=== PATIENT | female | born 1995 | race Caucasian/White ===

== ENCOUNTER 2019-04-01 22:07 | Emergency (ER) | payer MEDICAID ==
[~2019-04-01] VITALS: Ht 177 cm; Wt 107.0 kg
[~2019-04-01 22:07] MED LIST: LAMO100T PO; MONT10TA24 PO; NORG1TAB19 PO; PANT40TA3 PO; VENL75CA93 PO
[2019-04-01] MEDS ORDERED: LACTATED RINGERS 1,000 ML IV ONE (22:34)
--- NOTE | 2019-04-01 22:44 | ED Abdominal Pain ---
General Chief Complaint: - Urinary Stated Complaint: VOMITING; ABD PAIN Nursing Triage Note: PT STATES SHE WAS DIAGNOSED 2 WEEKS AGO WITH A UTI, BUT DID NOT GET HER PRESCRIPTION FILLED FOR THE ANTIBIOTIC. PT PRESENTS WITH N/V, SHE STATES SHE IS 2 MONTHS Sepsis Screen: No Definite Risk Source of Information: Patient Exam Limitations: No Limitations History of Present Illness Date Seen by Provider: Apr 01, 2019 Time Seen by Provider: 22:20 Initial Comments The patient presents to ER by private conveyance with her mother and chief complaint about a week and a half ago she was diagnosed in [place], [place] with a UTI. She is 2 months. She did not pick up attendant the antibiotics that she did not have money but now she is home with her mom who can get the antibiotics but they don't have the prescription. She does not see a primary care doctor. She's not having any vaginal bleeding or discharge. She is however having some abdominal discomfort in her epigastric region especially before and immediately after vomiting. She's not having any discomfort presently. No fevers or chills that she is aware of. She had her gallbladder out no other abdominal surgeries. Allergies and Home Medications Allergies Coded Allergies: No Known Drug Allergies (Unverified , 04/06/15) Home Medications Lamotrigine 100 Mg Tablet, 100 MG PO BID, (Reported) Montelukast Sodium 10 Mg Tablet, 10 MG PO DAILY, (Reported) Norgestimate-Ethinyl Estradiol 1 Each Tablet, 1 TAB PO DAILY, (Reported) Pantoprazole Sodium 40 Mg Tablet.dr, 40 MG PO DAILY, (Reported) Venlafaxine HCl 75 Mg Cap.er.24h, 75 MG PO DAILY, (Reported) Patient Home Medication List Home Medication List Reviewed: Yes Review of Systems Review of Systems Constitutional: No chills, No diaphoresis, No fever; malaise EENTM: No Blurred Vision, No Double Vision Respiratory: Denies Cough, Denies Shortness of Air Cardiovascular: Denies Chest Pain, Denies Edema, Denies Irregular Heart Rate Gastrointestinal: See HPI, Abdominal Pain; Denies Constipated, Denies Diarrhea; Nausea, Poor Fluid Intake, Vomiting Genitourinary: See HPI, Burning; Denies Discharge Musculoskeletal: No back pain, No joint pain All Other Systems Reviewed Negative Unless Noted: Yes Past Qxxorma-Qdkuxy-Dbwsuk Hx Patient Social History Alcohol Use: Denies Use Recreational Drug Use: No Smoking Status: Never a Smoker Recent Foreign Travel: No Contact w/Someone Who Travel: No Recent Infectious Disease Expo: No Physical Abuse: No Sexual Abuse: No Mistreated: No Fear: No Seasonal Allergies Seasonal Allergies: No Past Medical History Surgeries: Yes Adenoidectomy, Gallbladder, Tonsillectomy Respiratory: No Cardiac: No Neurological: Yes Seizure Disorder Reproductive Disorders: No Gastrointestinal: No Musculoskeletal: No Endocrine: No Cancer: No Psychosocial: No Integumentary: No Blood Disorders: No Physical Exam Vital Signs Vital Signs - First Documented 04/01/19 22:23 Temp 36.3 Pulse 97 Resp 20 B/P (MAP) 117/69 (85) Pulse Ox 97 O2 Delivery Room Air Capillary Refill : Less Than 3 Seconds Height/Weight/BMI Height: 5'9" Weight: 277lbs. oz. 125.405859gq; 34.00 BMI Method:Stated General Appearance: WD/WN, no apparent distress HEENT: PERRL/EOMI, normal ENT inspection Neck: full range of motion, normal inspection Respiratory: lungs clear, normal breath sounds, no respiratory distress, no accessory muscle use Cardiovascular: normal peripheral pulses, regular rate, rhythm Gastrointestinal: normal bowel sounds (activated), non tender, soft, no organomegaly, other (negative for mesenteric signs, Rovsing sign, McBurney's point tenderness or rebound tenderness) Extremities: normal range of motion, non-tender, normal inspection, normal capillary refill Neurologic/Psychiatric: alert, normal mood/affect, oriented x 3 Skin: normal color, warm/dry Progress/Results/Core Measures Results/Orders Lab Results Laboratory Tests Test 04/01/19 22:08 04/01/19 22:45 Range/Units Urine Color YELLOW Urine Clarity CLOUDY Urine pH 6.5 5-9 Urine Specific [place] 1.025 H 1.016-1.022 Urine Protein NEGATIVE NEGATIVE Urine Glucose (UA) NEGATIVE NEGATIVE Urine Ketones 3+ H NEGATIVE Urine Nitrite NEGATIVE NEGATIVE Urine Bilirubin NEGATIVE NEGATIVE Urine Urobilinogen 0.2 < = 1.0 MG/DL Urine Leukocyte Esterase 3+ H NEGATIVE Urine RBC (Auto) NEGATIVE NEGATIVE Urine RBC NONE /HPF Urine WBC 25-50 H /HPF Urine Squamous Epithelial Cells 10-25 H /HPF Urine Crystals NONE /LPF Urine Bacteria FEW H /HPF Urine Casts NONE /LPF Urine Mucus MODERATE H /LPF Urine Culture Indicated YES White Blood Count 7.8 4.3-11.0 10^3/uL Red Blood Count 4.91 4.35-5.85 10^6/uL Hemoglobin 13.9 11.5-16.0 G/DL Hematocrit 40 35-52 % Mean Corpuscular Volume 81 80-99 FL Mean Corpuscular Hemoglobin 28 25-34 PG Mean Corpuscular Hemoglobin Concent 35 32-36 G/DL Red Cell Distribution Width 11.8 10.0-14.5 % Platelet Count 229 130-400 10^3/uL Mean Platelet Volume 10.1 7.4-10.4 FL Neutrophils (%) (Auto) 62 42-75 % Lymphocytes (%) (Auto) 29 12-44 % Monocytes (%) (Auto) 8 0-12 % Eosinophils (%) (Auto) 2 0-10 % Basophils (%) (Auto) 0 0-10 % Neutrophils # (Auto) 4.8 1.8-7.8 X 10^3 Lymphocytes # (Auto) 2.2 1.0-4.0 X 10^3 Monocytes # (Auto) 0.6 0.0-1.0 X 10^3 Eosinophils # (Auto) 0.1 0.0-0.3 10^3/uL Basophils # (Auto) 0.0 0.0-0.1 10^3/uL Sodium Level 140 135-145 MMOL/L Potassium Level 3.8 3.6-5.0 MMOL/L Chloride Level 101 98-107 MMOL/L Carbon Dioxide Level 24 21-32 MMOL/L Anion Gap 15 H 5-14 MMOL/L Blood Urea Nitrogen 5 L 7-18 MG/DL Creatinine 0.62 0.60-1.30 MG/DL Estimat Glomerular Filtration Rate > 60 BUN/Creatinine Ratio 8 Glucose Level 96 70-105 MG/DL Calcium Level 9.9 8.5-10.1 MG/DL My Orders Orders - LACHELLE FABIAN Ua Culture If Indicated (04/01/19 22:08) Urine Bedside (04/01/19 22:08) Cbc With Automated Diff (04/01/19 22:34) Basic Metabolic Panel (04/01/19 22:34) Ed Iv/Invasive Line Start (04/01/19 22:34) Lactated Ringers (Lr 1000 Ml Iv Solution (04/01/19 22:34) Promethazine Injection (Phenergan Injec (04/01/19 22:45) Ceftriaxone For Iv Use (Rocephin For I (04/01/19 22:45) Promethazine Tablet (Phenergan Tablet) (04/01/19 23:30) Urine Culture (04/01/19 22:08) Medications Given in ED Current Medications Medications Dose Ordered Sig/Rosalba Route Start Time Stop Time Status Last Admin Dose Admin Ceftriaxone Sodium 1000 mg/ Sterile Water 10 ml @ 200 mls/hr ONCE ONCE IV 04/01/19 22:45 04/01/19 22:47 DC 04/01/19 22:52 200 MLS/HR Lactated Ringer's 1,000 ml @ 0 mls/hr Q0M ONCE IV 04/01/19 22:34 04/01/19 22:35 DC 04/01/19 22:51 999 MLS/HR Promethazine HCl 25 mg ONCE ONCE IVP 04/01/19 22:45 04/01/19 22:46 DC 04/01/19 22:52 25 MG Promethazine HCl 25 mg ONCE ONCE PO 04/01/19 23:30 04/01/19 23:31 DC 04/01/19 23:32 25 MG Vital Signs/I&O 04/01/19 22:23 Temp 36.3 Pulse 97 Resp 20 B/P (MAP) 117/69 (85) Pulse Ox 97 O2 Delivery Room Air 04/02/19 00:00 Intake Total 1010 ml Balance 1010 ml Blood Pressure Mean: 85 POS Progress Progress Note : Time: 22:41 Progress Note We'll check a urine, rectocele test, CBC and BMP. Plan to give her a liter fluids as her heart rate is consistently in the 90s. Phenergan for her nausea. She's not having any pain presently. I suspect she may have a UTI and mild dehydration Departure Impression Primary Impression: Urinary tract infection Qualified Codes: N30.00 - Acute cystitis without hematuria Disposition: 01 HOME, SELF-CARE Condition: Stable Departure-Patient Inst. Decision time for Depature: 00:09 Referrals: NO,LOCAL PHYSICIAN (PCP/Family) Primary Care Physician Patient Instructions: Urinary Tract Infection, Adult (DC) Add. Discharge Instructions: Drink lots of fluids. Phenergan 1 tablet every 6 hours as needed for nausea. Start taking Keflex one capsule twice a day for the next 5 days. All discharge instructions reviewed with patient and/or family. Voiced understanding. Scripts Cephalexin (Keflex) 500 Mg Capsule 500 MG PO BID for 5 Days, #10 CAP 0 Refills Prov: LACHELLE FABIAN 04/02/19 LACHELLE FABIAN Apr 01, 2019 22:44 POS
[2019-04-01] MEDS ORDERED: PROMETHAZINE INJ 25 MG/ML (PHENERGAN) AMP IVP ONE (22:45)
[2019-04-01] MEDS ORDERED: cefTRIAXone FOR IV USE 1,000 MG in WATER (STERILE) FOR INJECTION 10 ML IV ONE (22:45)
[2019-04-01 22:53] LABS: BASOPHILS % (AUTO) 0 % (0-10); EOSINOPHILS % (AUTO) 2 % (0-10); HEMATOCRIT 40 % (35-52); HEMOGLOBIN 13.9 G/DL (11.5-16.0); LYMPHOCYTES # (AUTO) 2.2 X 10^3 (1.0-4.0); LYMPHOCYTES % (AUTO) 29 % (12-44); MEAN CORPUSCULAR HEMOGLOBIN 28 PG (25-34); MEAN CORPUSCULAR HGB CONC 35 G/DL (32-36); MEAN CORPUSCULAR VOLUME 81 FL (80-99); MEAN PLATELET VOLUME 10.1 FL (7.4-10.4); MONOCYTES % (AUTO) 8 % (0-12); NEUTROPHILS # (AUTO) 4.8 X 10^3 (1.8-7.8); NEUTROPHILS % (AUTO) 62 % (42-75); PLATELET COUNT 229 10^3/uL (130-400); RED CELL DISTRIBUTION WIDTH 11.8 % (10.0-14.5); WHITE BLOOD COUNT 7.8 10^3/uL (4.3-11.0)
[2019-04-01 22:54] LABS: EOSINOPHILS # (AUTO) 0.1 10^3/uL (0.0-0.3); MONOCYTES # (AUTO) 0.6 X 10^3 (0.0-1.0)
[2019-04-01 23:17] LABS: BUN/CREATININE RATIO 8; CALCIUM 9.9 MG/DL (8.5-10.1); CARBON DIOXIDE 24 MMOL/L (21-32); CHLORIDE 101 MMOL/L (98-107); CREATININE SERUM 0.62 MG/DL (0.60-1.30); GFR ESTIMATED > 60; GLUCOSE 96 MG/DL (70-105); POTASSIUM 3.8 MMOL/L (3.6-5.0); SODIUM 140 MMOL/L (135-145)
[2019-04-01] MEDS ORDERED: PROMETHAZINE 25 MG (PHENERGAN) TAB PO ONE (23:30)
[2019-04-01 23:37] LABS: BILIRUBIN,URINE NEGATIVE (NEGATIVE); CLARITY,URINE CLOUDY; COLOR,URINE YELLOW; GLUCOSE, URINE (UA) NEGATIVE (NEGATIVE); KETONES,URINE 3+ (NEGATIVE); LEUKOCYTE ESTERASE ,URINE 3+ (NEGATIVE); NITRITE,URINE NEGATIVE (NEGATIVE); PH,URINE 6.5 (5-9); PROTEIN,URINE NEGATIVE (NEGATIVE)
[2019-04-02 00:01] LABS: BACTERIA,URINE FEW /HPF; WBC,URINE 25-50 /HPF
[2019-04-02] MEDS ORDERED: CEPH-507 PO (00:11)
[2019-04-02] MEDS ORDERED: PROM25TA14 PO (00:15)
[2019-04-02 00:21] VITALS: BP 125/66
== END 2019-04-02 00:22 | disposition home or self-care (01) ==
LOC: EDUNIT# 22:07 → ER FS 22:09
DX: O23.41 Unspecified infection of urinary tract in pregnancy, first trimester (principal); O99.351 Diseases of the nervous system complicating pregnancy, first trimester; G40.909 Epilepsy, unspecified, not intractable, without status epilepticus; Z3A.00 Weeks of gestation of pregnancy not specified; Z90.89 Acquired absence of other organs
CPT/HCPCS: 36415; 80048; 81000; 84703; 85025; 87088; 96361; 96374; 96375

== ENCOUNTER 2019-09-08 17:09 | Emergency (ER) | payer MEDICAID ==
[~2019-09-08] VITALS: Ht 175 cm; Wt 117.1 kg
[~2019-09-08 17:09] MED LIST changes: +CEPH-507 PO; -LAMO100T PO; +LAMO100T5 PO; -MONT10TA24 PO; +MONT10TA26 PO; +PROM25TA14 PO
--- NOTE | 2019-09-08 18:11 | ED Neurological Problem ---
General Chief Complaint: Neurological Problems Stated Complaint: SEIZURE/OB Nursing Triage Note: Had a seizure approximately 1 hour ago. Is unsure how long the seizure lasted. She is currently , due in October, and is worried about the baby. Nursing Sepsis Screen: No Definite Risk Source: patient Exam Limitations: no limitations History of Present Illness Date Seen by Provider: September 08, 2019 Time Seen by Provider: 17:50 Initial Comments Patient presents to ER by private conveyance with chief complaint of approximate 1 hour prior to arrival she had a witnessed seizure lasting a few minutes. She had some postictal state and then was concern for her fetus his health and decided come to the ER to be checked out. She is known to Dr. Monique. She is a at 31 weeks 4 days with an estimated due date November 06, 2019. She has an appointment next week with both her neurologist to discuss her lamotrigine dosing and her loom repairer, Dr. Monique. She has been taking her medications routinely and has not had any recent illness cough fevers chills shortness breath nausea sweats seeing spots right upper quadrant abdominal pain dysuria, discharge or diarrhea. No sick contacts. Nursing reports heart tones 160. She felt movement/kicking just prior to arriving to the ER. Her last seizure before this was in May 2018 over a year ago. She denies a history of difficulty with , preeclamptic, hypertension, hyperglycemia. Allergies and Home Medications Allergies Coded Allergies: No Known Drug Allergies (Unverified , 04/06/15) Home Medications Cephalexin 500 Mg Capsule, 500 MG PO BID Prescribed by: LACHELLE FABIAN on 04/02/19 001 Lamotrigine 100 Mg Tablet, 100 MG PO BID, (Reported) Montelukast Sodium 10 Mg Tablet, 10 MG PO DAILY, (Reported) Norgestimate-Ethinyl Estradiol 1 Each Tablet, 1 TAB PO DAILY, (Reported) Pantoprazole Sodium 40 Mg Tablet.dr, 40 MG PO DAILY, (Reported) Promethazine HCl 25 Mg Tablet, 25 MG PO Q6H PRN for NAUSEA/VOMITING Prescribed by: LACHELLE FABIAN on 04/02/19 001 Venlafaxine HCl 75 Mg Cap.er.24h, 75 MG PO DAILY, (Reported) Patient Home Medication List Home Medication List Reviewed: Yes Review of Systems Review of Systems Constitutional: No chills, No diaphoresis Eyes: Denies Blindness, Denies Blurred Vision, Denies Photophobia, Denies Shadows Ears, Nose, Mouth, Throat: denies ear pain, denies ear discharge Respiratory: No cough, No short of breath Cardiovascular: No edema, No palpitations Gastrointestinal: No abdominal pain, No constipation, No diarrhea, No nausea, No vomiting Genitourinary: No decreased output, No discharge : No Musculoskeletal: No back pain, No joint pain Skin: No change in color, No pruritus, No rash Hematologic/Lymphatic: Denies Anemia, Denies Blood Clots, Denies Easy Bleeding, Denies Easy Bruising All Other Systems Reviewed Negative Unless Noted: Yes Past Sysmair-Ifebof-Gtrasj Hx Patient Social History Alcohol Use: Denies Use Recreational Drug Use: No Smoking Status: Never a Smoker 2nd Hand Smoke Exposure: No Recent Foreign Travel: No Contact w/Someone Who Travel: No Recent Infectious Disease Expo: No Physical Abuse: No Sexual Abuse: No Mistreated: No Fear: No Seasonal Allergies Seasonal Allergies: No Past Medical History Surgeries: Yes Adenoidectomy, Gallbladder, Tonsillectomy Respiratory: No Cardiac: No Neurological: Yes Seizure Disorder Reproductive Disorders: No Genitourinary: No Gastrointestinal: No Musculoskeletal: No Endocrine: No HEENT: No Cancer: No Psychosocial: No Integumentary: No Blood Disorders: No Physical Exam Vital Signs Vital Signs - First Documented 09/08/19 17:29 Temp 37.5 Pulse 95 Resp 16 B/P (MAP) 110/61 (77) Pulse Ox 96 Capillary Refill : Less Than 3 Seconds Height, Weight, BMI Height: 5'9" Weight: 277lbs. oz. 125.749212lq; 38.00 BMI Method:Stated General Appearance: WD/WN, no apparent distress HEENT: PERRL/EOMI, normal ENT inspection, pharynx normal Neck: full range of motion, normal inspection Respiratory: no respiratory distress, no accessory muscle use Cardiovascular: normal peripheral pulses, regular rate, rhythm, no edema Peripheral Pulses: 2+ Radial Pulses (R), 2+ Radial Pulses (L) Gastrointestinal: non tender, soft, other (gravid) Neurologic/Psychiatric: alert, normal mood/affect, oriented x 3 Crainal Nerves: normal hearing, normal speech, PERRL Skin: normal color, warm/dry Progress/Results/Core Measures Results/Orders Lab Results Laboratory Tests Test 09/08/19 18:09 09/08/19 18:22 Range/Units Urine Color YELLOW Urine Clarity SLT CLOUDY Urine pH 6.0 5-9 Urine Specific [place] >=1.030 1.016-1.022 Urine Protein TRACE H NEGATIVE Urine Glucose (UA) NEGATIVE NEGATIVE Urine Ketones TRACE H NEGATIVE Urine Nitrite NEGATIVE NEGATIVE Urine Bilirubin NEGATIVE NEGATIVE Urine Urobilinogen 0.2 < = 1.0 MG/DL Urine Leukocyte Esterase TRACE H NEGATIVE Urine RBC (Auto) NEGATIVE NEGATIVE Urine RBC NONE /HPF Urine WBC 5-10 H /HPF Urine Squamous Epithelial Cells 5-10 /HPF Urine Crystals NONE /LPF Urine Bacteria LARGE H /HPF Urine Casts NONE /LPF Urine Mucus SMALL H /LPF Urine Culture Indicated YES White Blood Count 9.4 4.3-11.0 10^3/uL Red Blood Count 4.55 4.35-5.85 10^6/uL Hemoglobin 13.0 11.5-16.0 G/DL Hematocrit 37 35-52 % Mean Corpuscular Volume 82 80-99 FL Mean Corpuscular Hemoglobin 29 25-34 PG Mean Corpuscular Hemoglobin Concent 35 32-36 G/DL Red Cell Distribution Width 12.1 10.0-14.5 % Platelet Count 271 130-400 10^3/uL Mean Platelet Volume 10.4 7.4-10.4 FL Neutrophils (%) (Auto) 75 42-75 % Lymphocytes (%) (Auto) 17 12-44 % Monocytes (%) (Auto) 7 0-12 % Eosinophils (%) (Auto) 1 0-10 % Basophils (%) (Auto) 0 0-10 % Neutrophils # (Auto) 7.0 1.8-7.8 X 10^3 Lymphocytes # (Auto) 1.6 1.0-4.0 X 10^3 Monocytes # (Auto) 0.6 0.0-1.0 X 10^3 Eosinophils # (Auto) 0.1 0.0-0.3 10^3/uL Basophils # (Auto) 0.0 0.0-0.1 10^3/uL Prothrombin Time 13.4 12.2-14.7 SEC INR Comment 1.0 0.8-1.4 Sodium Level 137 135-145 MMOL/L Potassium Level 4.2 3.6-5.0 MMOL/L Chloride Level 103 98-107 MMOL/L Carbon Dioxide Level 21 21-32 MMOL/L Anion Gap 13 5-14 MMOL/L Blood Urea Nitrogen 7 7-18 MG/DL Creatinine 0.56 L 0.60-1.30 MG/DL Estimat Glomerular Filtration Rate > 60 BUN/Creatinine Ratio 13 Glucose Level 96 70-105 MG/DL Calcium Level 9.2 8.5-10.1 MG/DL Corrected Calcium 9.6 8.5-10.1 MG/DL Total Bilirubin 0.4 0.1-1.0 MG/DL Aspartate Amino Transf (AST/SGOT) 18 5-34 U/L Alanine Aminotransferase (ALT/SGPT) 15 0-55 U/L Alkaline Phosphatase 142 H 40-136 U/L Total Protein 6.9 6.4-8.2 GM/DL Albumin 3.5 3.2-4.5 GM/DL My Orders Orders - LACHELLE FABIAN Cbc With Automated Diff (09/08/19 18:06) Comprehensive Metabolic Panel (09/08/19 18:06) Protime With Inr (09/08/19 18:06) Ua Culture If Indicated (09/08/19 18:06) Urine Culture (09/08/19 18:09) Vital Signs/I&O 09/08/19 17:29 Temp 37.5 Pulse 95 Resp 16 B/P (MAP) 110/61 (77) Pulse Ox 96 Blood Pressure Mean: 77 Progress Progress Note : Time: 18:10 Progress Note Well-appearing young lady who is with aseptic vital signs and a septic appearance and history of epilepsy presents after a seizure this been over a year. Likely related to the physiologic changes of however we will check a CMP PT/INR, CBC and UA looking for signs of infection and inflammation as well as help syndrome/preeclampsia. Fibrinogen is a send out here. We will then discuss the case with Dr. Monique. She has movement and good heart tones which are both reassuring. Consults : Consulting Physician: STACEY DALE DO Consults Notes Discussed the case with her primary lacquer polisher and he feels that if she is alert oriented and has good heart tones and movement that the dangerous past and she would be fine follow up next week. Departure Impression Primary Impression: Seizure Additional Impressions: Epilepsy Qualified Codes: G40.909 - Epilepsy, unspecified, not intractable, without status epilepticus Qualified Codes: Z3A.31 - 31 weeks gestation of Asymptomatic bacteriuria during in third trimester Disposition: 01 HOME, SELF-CARE Condition: Stable Departure-Patient Inst. Decision time for Depature: 19:20 Referrals: NO,LOCAL PHYSICIAN (PCP/Family) Primary Care Physician Patient Instructions: Epilepsy and , Seizures, Adult (DC) Add. Discharge Instructions: Continue taking your medications as prescribed. Follow-up next week to schedule appointment with Dr. Monique. All discharge instructions reviewed with patient and/or family. Voiced understanding. LACHELLE FABIAN September 08, 2019 18:11
[2019-09-08 18:25] LABS: CLARITY,URINE SLT CLOUDY; COLOR,URINE YELLOW; GLUCOSE, URINE (UA) NEGATIVE (NEGATIVE); KETONES,URINE TRACE (NEGATIVE); PROTEIN,URINE TRACE (NEGATIVE)
[2019-09-08 18:26] LABS: BACTERIA,URINE LARGE /HPF; BILIRUBIN,URINE NEGATIVE (NEGATIVE); LEUKOCYTE ESTERASE ,URINE TRACE (NEGATIVE); NITRITE,URINE NEGATIVE (NEGATIVE)
[2019-09-08 18:38] LABS: HEMATOCRIT 37 % (35-52); MEAN CORPUSCULAR HEMOGLOBIN 29 PG (25-34); MEAN CORPUSCULAR HGB CONC 35 G/DL (32-36); MEAN CORPUSCULAR VOLUME 82 FL (80-99); MEAN PLATELET VOLUME 10.4 FL (7.4-10.4); PLATELET COUNT 271 10^3/uL (130-400); RED CELL DISTRIBUTION WIDTH 12.1 % (10.0-14.5); WHITE BLOOD COUNT 9.4 10^3/uL (4.3-11.0)
[2019-09-08 18:39] LABS: BASOPHILS % (AUTO) 0 % (0-10); EOSINOPHILS # (AUTO) 0.1 10^3/uL (0.0-0.3); EOSINOPHILS % (AUTO) 1 % (0-10); LYMPHOCYTES # (AUTO) 1.6 X 10^3 (1.0-4.0); LYMPHOCYTES % (AUTO) 17 % (12-44); MONOCYTES # (AUTO) 0.6 X 10^3 (0.0-1.0); MONOCYTES % (AUTO) 7 % (0-12); NEUTROPHILS % (AUTO) 75 % (42-75)
[2019-09-08 18:47] LABS: PROTHROMBIN TIME PATIENT 13.4 SEC (12.2-14.7)
[2019-09-08 19:13] LABS: ALANINE AMINOTRANSFERASE 15 U/L (0-55); ALKALINE PHOSPHATASE 142 U/L (40-136); BILIRUBIN,TOTAL 0.4 MG/DL (0.1-1.0); BUN/CREATININE RATIO 13; CALCIUM 9.2 MG/DL (8.5-10.1); CARBON DIOXIDE 21 MMOL/L (21-32); CHLORIDE 103 MMOL/L (98-107); CREATININE SERUM 0.56 MG/DL (0.60-1.30); GFR ESTIMATED > 60; GLUCOSE 96 MG/DL (70-105); POTASSIUM 4.2 MMOL/L (3.6-5.0); SODIUM 137 MMOL/L (135-145); TOTAL PROTEIN 6.9 GM/DL (6.4-8.2)
[2019-09-08 19:14] LABS: ALBUMIN 3.5 GM/DL (3.2-4.5)
[2019-09-08 19:28] VITALS: BP 119/69
== END 2019-09-08 19:28 | disposition home or self-care (01) ==
LOC: EDUNIT# 17:09 → ER FS 17:10
DX: O99.353 Diseases of the nervous system complicating pregnancy, third trimester (principal); G40.909 Epilepsy, unspecified, not intractable, without status epilepticus; O26.893 Other specified pregnancy related conditions, third trimester; R82.71 Bacteriuria; Z3A.31 31 weeks gestation of pregnancy
CPT/HCPCS: 36415; 80053; 81000; 85025; 85610; 87088

== ENCOUNTER 2019-10-30 05:09 | Inpatient (IN) | payer MEDICAID ==
[~2019-10-30] VITALS: Ht 175.3 cm; Wt 122.6 kg
[2019-10-30] VITALS (85 sets, daily range): BP systolic 82–190; BP diastolic 45–79
--- NOTE | 2019-10-30 05:15 | NUR ---
WILIAN MONCADA presented to unit via ambulation from ED, accompanied by family, with c/o INDUCTION. WILIAN MONCADA weighed, gowned, voided, and to bed. EFHM and TOCO applied, VS taken. WILIAN MONCADA oriented to bed controls, call light, TV, heat, and A/C controls.
[2019-10-30] MEDS ORDERED: LAMO150T4 PO (05:26)
[2019-10-30] MEDS ORDERED: OXYTOCIN PRE-MIX DRIP 500 ML IV SCH ×2 (05:29→17:00)
[2019-10-30] MEDS ORDERED: MINERAL OIL CONCENTRATE 99.9% 15 ML UDC TOP PRN (05:30)
[2019-10-30 05:39] LABS: BILIRUBIN,URINE NEGATIVE (NEGATIVE); CLARITY,URINE SL CLOUDY; COLOR,URINE YELLOW; GLUCOSE, URINE (UA) NEGATIVE (NEGATIVE); KETONES,URINE NEGATIVE (NEGATIVE); LEUKOCYTE ESTERASE ,URINE 1+ (NEGATIVE); NITRITE,URINE NEGATIVE (NEGATIVE); PH,URINE 6.5 (5-9); PROTEIN,URINE NEGATIVE (NEGATIVE)
[2019-10-30] MEDS: D5 LR IV SOLUTION 1,000 ML IV SCH ×2 (05:56→13:32)
[2019-10-30 06:02] LABS: BACTERIA,URINE MODERATE /HPF
[2019-10-30 06:20] LABS: BASOPHILS % (AUTO) 0 % (0-10); EOSINOPHILS # (AUTO) 0.1 10^3/uL (0.0-0.3); EOSINOPHILS % (AUTO) 2 % (0-10); HEMATOCRIT 36 % (35-52); HEMOGLOBIN 12.6 G/DL (11.5-16.0); LYMPHOCYTES % (AUTO) 24 % (12-44); MEAN CORPUSCULAR HEMOGLOBIN 28 PG (25-34); MEAN CORPUSCULAR HGB CONC 35 G/DL (32-36); MEAN CORPUSCULAR VOLUME 80 FL (80-99); MEAN PLATELET VOLUME 10.6 FL (7.4-10.4); MONOCYTES # (AUTO) 0.8 X 10^3 (0.0-1.0); MONOCYTES % (AUTO) 10 % (0-12); NEUTROPHILS # (AUTO) 5.4 X 10^3 (1.8-7.8); NEUTROPHILS % (AUTO) 65 % (42-75); PLATELET COUNT 231 10^3/uL (130-400); RED CELL DISTRIBUTION WIDTH 13.1 % (10.0-14.5); WHITE BLOOD COUNT 8.3 10^3/uL (4.3-11.0)
[2019-10-30] MEDS ORDERED: LACTATED RINGERS 1,000 ML IV ONE ×3 (06:43→08:11)
[2019-10-30] MEDS ORDERED: fentaNYL 2 mcg/ml BUPIVA 0.125 100 ML ONE (07:20)
--- NOTE | 2019-10-30 07:21 | History & Physical-OB/GYN ---
History of Present Illness History of Present Illness Reason for visit/HPI Ms. Vaz, at 39 1/7 weeks, presents for Pitocin Induction of Labor. Date of Admission Oct 30, 2019 at 05:09 Date Seen by a Provider: Oct 30, 2019 Time Seen by a Provider: 06:50 I consulted on this patient on 10/30/19 07:15 Attending Physician Bob Yi DO Admitting Physician Bob Yi DO Consult Allergies and Home Medications Allergies Coded Allergies: cyclobenzaprine (Verified Allergy, Unknown, 10/30/19) Home Medications Lamotrigine 150 Mg Tablet, 150 MG PO BID, (Reported) Patient Home Medication List Home Medication List Reviewed: Yes Past Tkryyca-Donesc-Iyayjq Hx Patient Social History Marrital Status: single Number of Children: 0 Number of living children: 0 Alcohol Use: Denies Use Recreational Drug Use: No 2nd Hand Smoke Exposure: No Physical Abuse Screen: No Sexual Abuse: No Recent Foreign Travel: No Contact w/other who traveled: No Recent Hopitalizations: No Recent Infectious Disease Expo: No Seasonal Allergies Seasonal Allergies: Yes Surgeries Yes Adenoidectomy, Gallbladder, Tonsillectomy Respiratory No Cardiovascular No Neurological Yes Seizure Disorder Reproductive System Expected Date of Delivery: Nov 06, 2019 Hx Reproductive Disorders: No Genitourinary No Gastrointestinal No Musculoskeletal No Endocrine History of Endocrine Disorders: No HEENT History of HEENT Disorders: No Cancer No Psychosocial History of Psychiatric Problem: No Integumentary History of Skin or Integumenta: No Blood Transfusions History of Blood Disorders: No Family Medical History Family Hx: Patient reports no known family medical history. Review of Systems Constitutional: see HPI Physical Exam Physical Exam Vital Signs Vital Signs Date Time Temp Pulse Resp B/P (MAP) Pulse Ox O2 Delivery O2 Flow Rate FiO2 10/30/19 06:56 36.2 149 20 93 Room Air 10/30/19 05:28 36.2 149 20 102/71 (81) 93 Room Air Capillary Refill : Labs Laboratory Tests 10/30/19 05:25: Urine Color YELLOW, Urine Clarity SL CLOUDY, Urine pH 6.5, Urine Specific [place] 1.025H, Urine Protein NEGATIVE, Urine Glucose (UA) NEGATIVE, Urine Ketones NEGATIVE, Urine Nitrite NEGATIVE, Urine Bilirubin NEGATIVE, Urine Urobilinogen 0.2, Urine Leukocyte Esterase 1+H, Urine RBC (Auto) NEGATIVE, Urine RBC NONE, Urine WBC 5-10H, Urine Squamous Epithelial Cells 5-10, Urine Crystals NONE, Urine Bacteria MODERATEH, Urine Casts NONE, Urine Mucus NEGATIVE, Urine Culture Indicated YES 10/30/19 05:50: White Blood Count 8.3, Red Blood Count 4.44, Hemoglobin 12.6, Hematocrit 36, Mean Corpuscular Volume 80, Mean Corpuscular Hemoglobin 28, Mean Corpuscular Hemoglobin Concent 35, Red Cell Distribution Width 13.1, Platelet Count 231, Mean Platelet Volume 10.6H, Neutrophils (%) (Auto) 65, Lymphocytes (%) (Auto) 24, Monocytes (%) (Auto) 10, Eosinophils (%) (Auto) 2, Basophils (%) (Auto) 0, Neutrophils # (Auto) 5.4, Lymphocytes # (Auto) 2.0, Monocytes # (Auto) 0.8, Eosinophils # (Auto) 0.1, Basophils # (Auto) 0.0 General Appearance: No Apparent Distress, WD/WN Respiratory: Chest Non Tender, Lungs Clear, Normal Breath Sounds Cardiovascular: Regular Rate, Rhythm, No Murmur Abdominal: normal bowel sounds, non tender Labia: WNL Vagina: WNL Uterus: WNL, Enlarged (Gravid) Extremity: Normal Inspection, Non Tender, No Calf Tenderness Assessment/Plan Assessment and Plan Assessment: Intrauterine at 39 weeks Plan: Pitocin Induction of Labor. AROM. Epidural Anesthesia. I expect a normal spontaneous vaginal delivery Admission Diagnosis Admission Status: Inpatient Order (span 2 midnights) Reason for Inpatient Admission: with expectant delivery Clinical Quality Measures DVT/VTE Risk/Contraindication: Risk Factor Score Per Nursin RFS Level Per Nursing on Admit: 1=Low/No VTE PPBOB SCHRADER DO Oct 30, 2019 07:20
[2019-10-30] MEDS ORDERED: fentaNYL INJECTION 100 MCG/2 ML AMP ONE (07:41)
[2019-10-30] MEDS: EPIDURAL (fentaNYL 2 MCG/ML BUPIVA 0.125%)100 ML BAG EPI PRN ×2 (08:08→14:30)
[2019-10-30] MEDS ORDERED: ONDANSETRON 4 MG/2 ML (SDV) Z0FRAN IV PRN (08:15)
[2019-10-30] MEDS ORDERED: NALOXONE 0.4 MG/ML 1 ML (NARCAN) VIAL IV PRN (08:15)
[2019-10-30] MEDS ORDERED: BUPIVACAINE 0.25% 30 ML (SENSORCAINE) VIAL ONE (08:17)
[2019-10-30] MEDS ORDERED: LIDOCAINE 1% INJ 20 ML 20 ML VIAL ONE ×3 (15:57→16:28)
[2019-10-30] MEDS ORDERED: DIAZEPAM INJ 10 MG/2 ML (VALIUM) SYR ONE (16:33)
[2019-10-30] MEDS ORDERED: TETANUS,DIPTH,PERTUSS P/F (BOOSTRIX) 0.5 ML VIAL IM ONE (17:00)
[2019-10-30] MEDS ORDERED: WITCH HAZEL(TUCKS) 40 EA JAR TOP PRN (17:00)
[2019-10-30] MEDS ORDERED: BENZOCAINE/MENTHOL (DERMOPLAST) 60 ML CAN TP PRN (17:00)
[2019-10-30] MEDS ORDERED: DIBUCAINE (NUPERCAINAL) 1% OINT 30 GM TOP PRN (17:00)
[2019-10-30] MEDS ORDERED: MEASLES,MUMPS,RUBELLA 1 EA INJ SQ ONE (17:00)
--- NOTE | 2019-10-30 17:06 | OB Labor & Delivery Record ---
Vag Delivery Note Vag Delivery Note Date of Delivery: 10/30/19 Preoperative Diagnosis: Yolis Vaz is a (24 /Para / , Gestational Age (wks)39with [] Postoperative Diagnosis: Same Surgeon: STACEY DALE Cleaning Technician: [None] Anesthesia: [Epidural and Pudendal Block] Delivery Type: [Vaginal] Findings: [] Viable [Male] , apgars [], weight [] Lacerations: Midline Episiotomy Intact placenta with 3 vessel cord. No nuchal cord, body cord or shoulder dystocia Cytotec 800 mcg placed for hemorrhage prophylaxis Estimated Blood Loss: [300] ml Complications: None Condition: Stable Description of Procedure: The patient is a 24 year old female who presented [for Pitocin Induction of L abor]. She was admitted and informed consent was obtained. Her labor course was unremarkable. She progressed to complete dilatation and began to push. She was then set up for delivery. The 's head was delivered atraumatically in the [ROSSI] position. The shoulders and remainder of the 's body were then delivered without difficulty. Upon delivery, the head was held below the level of the perineum and the mouth and nares were bulb suctioned. The cord was doubly clamped and cut and the infant was handed off to the pediatric staff where NRP protocol was followed. An intact placenta with 3-vessel cord delivered via Kika and there was found to be minimal bleeding.~ Vigorous fundal massage was performed and the fundus was found to be firm. IV oxytocin was given. Examination of the vagina and perineum revealed only the midline episiotomy with no extension--repaired in the usual fashion with 2-0 and 3-0 vicryl suture. Following the repair, sponge, instrument and needle counts were correct. Mom and baby were both in stable condition in the labor suite. EBL 300 ml Vitals - Labs Vital Signs - I&O Vital Signs Date Time Temp Pulse Resp B/P (MAP) Pulse Ox O2 Delivery O2 Flow Rate FiO2 10/30/19 15:42 92 20 114/61 (78) Room Air 10/30/19 15:27 92 20 106/62 (77) Room Air 10/30/19 15:15 93 20 105/58 (74) Room Air 10/30/19 14:54 39.0 86 20 101/63 (76) Room Air 10/30/19 14:49 116 20 100/59 (73) Room Air 10/30/19 14:44 100 20 108/58 (75) Room Air 10/30/19 14:39 83 20 108/60 (76) Room Air 10/30/19 14:34 86 20 110/59 (76) Room Air 10/30/19 14:25 86 20 145/75 (98) Room Air 10/30/19 14:15 109 20 107/55 (72) Room Air 10/30/19 14:06 104 20 104/55 (71) Room Air 10/30/19 14:03 88 20 113/66 (82) Room Air 10/30/19 14:00 100 20 109/57 (74) Room Air 10/30/19 13:58 90 20 109/68 (82) Room Air 10/30/19 13:54 89 20 111/59 (76) Room Air 10/30/19 13:51 96 20 111/58 (75) Room Air 10/30/19 13:48 87 20 104/59 (74) Room Air 10/30/19 13:45 99 20 107/61 (76) Room Air 10/30/19 13:42 85 20 107/61 (76) Room Air 10/30/19 13:39 83 20 112/68 (83) Room Air 10/30/19 13:37 88 20 108/62 (77) Room Air 10/30/19 13:32 100 20 108/60 (76) Room Air 10/30/19 13:27 93 20 125/63 (83) Room Air 10/30/19 13:23 36.1 104 20 116/61 (79) Room Air 10/30/19 13:17 116 20 104/59 (74) Room Air 10/30/19 13:12 110 20 109/57 (74) Room Air 10/30/19 13:07 107 20 121/62 (81) Room Air 10/30/19 13:02 104 20 110/63 (79) Room Air 10/30/19 12:57 111 20 104/61 (75) Room Air 10/30/19 12:53 118 20 100/64 (76) Room Air 10/30/19 12:47 105 20 112/59 (76) Room Air 10/30/19 12:43 107 20 111/57 (75) Room Air 10/30/19 12:37 109 20 114/57 (76) Room Air 10/30/19 12:32 98 20 106/57 (73) Room Air 10/30/19 12:27 110 20 107/60 (76) Room Air 10/30/19 12:21 107 20 103/57 (72) Room Air 10/30/19 12:18 87 20 102/56 (71) Room Air 10/30/19 12:13 87 20 103/55 (71) Room Air 10/30/19 12:08 90 20 110/54 (72) Room Air 10/30/19 12:00 36.7 10/30/19 11:50 85 20 93/61 (72) Room Air 10/30/19 11:35 79 20 86/54 (65) Room Air 10/30/19 11:20 72 20 86/50 (62) Room Air 10/30/19 11:15 36.9 10/30/19 11:05 78 20 82/45 (57) Room Air 10/30/19 10:50 80 20 86/48 (61) Room Air 10/30/19 10:35 78 20 87/49 (62) Room Air 10/30/19 10:20 82 20 85/48 (60) Room Air 10/30/19 10:05 102 20 110/57 (74) 97 Room Air 10/30/19 09:50 87 20 102/50 (67) 96 Room Air 10/30/19 09:35 105 20 110/55 (73) 98 Room Air 10/30/19 09:20 94 20 108/56 (73) 97 Room Air 10/30/19 09:05 96 20 104/59 (74) 96 Room Air 10/30/19 08:50 36.8 88 20 106/56 (73) 97 Room Air 10/30/19 08:43 90 20 102/58 (73) 98 Room Air 10/30/19 08:37 103 20 106/58 (74) 97 Room Air 10/30/19 08:34 84 20 100/53 (69) 96 Room Air 10/30/19 08:31 90 20 100/66 (77) Room Air 10/30/19 08:28 99 20 104/58 (73) 96 Room Air 10/30/19 08:25 106 20 111/57 (75) 96 Room Air 10/30/19 08:22 94 20 106/59 (75) 96 Room Air 10/30/19 08:15 103 20 109/66 (80) 96 Room Air 10/30/19 08:12 107 20 107/59 (75) 96 Room Air 10/30/19 08:09 114 20 113/65 (81) 96 Room Air 10/30/19 08:06 100 20 120/70 (87) 96 Room Air 10/30/19 08:03 96 20 113/66 (82) 97 Room Air 10/30/19 08:00 117 20 132/79 (96) 97 Room Air 10/30/19 07:40 37.0 108 20 115/65 (82) 10/30/19 06:56 36.2 149 20 93 Room Air 10/30/19 05:28 36.2 149 20 102/71 (81) 93 Room Air Labs Laboratory Tests 10/30/19 05:25: Urine Color YELLOW, Urine Clarity SL CLOUDY, Urine pH 6.5, Urine Specific [place] 1.025H, Urine Protein NEGATIVE, Urine Glucose (UA) NEGATIVE, Urine Ketones NEGATIVE, Urine Nitrite NEGATIVE, Urine Bilirubin NEGATIVE, Urine Urobilinogen 0.2, Urine Leukocyte Esterase 1+H, Urine RBC (Auto) NEGATIVE, Urine RBC NONE, Urine WBC 5-10H, Urine Squamous Epithelial Cells 5-10, Urine Crystals NONE, Urine Bacteria MODERATEH, Urine Casts NONE, Urine Mucus NEGATIVE, Urine Culture Indicated YES 10/30/19 05:50: White Blood Count 8.3, Red Blood Count 4.44, Hemoglobin 12.6, Hematocrit 36, Mean Corpuscular Volume 80, Mean Corpuscular Hemoglobin 28, Mean Corpuscular Hemoglobin Concent 35, Red Cell Distribution Width 13.1, Platelet Count 231, Mean Platelet Volume 10.6H, Neutrophils (%) (Auto) 65, Lymphocytes (%) (Auto) 24, Monocytes (%) (Auto) 10, Eosinophils (%) (Auto) 2, Basophils (%) (Auto) 0, Neutrophils # (Auto) 5.4, Lymphocytes # (Auto) 2.0, Monocytes # (Auto) 0.8, Eosinophils # (Auto) 0.1, Basophils # (Auto) 0.0 STACEY DALE DO Oct 30, 2019 17:06
[2019-10-30] MEDS: IBUPROFEN 800 MG (MOTRIN) TAB PO SCH (18:33)
--- NOTE | 2019-10-30 19:00 | NUR ---
FFU/1, light rubra lochia noted, no clots expressed. Clean gown on. Fresh vpad and underwear on. Pt assisted to wheelchair. Pt and personal belongings taken to pp room 309 via wheelchair accompanied by rn, sister, and . Pt assisted to bed without incident. Pt and sister oriented to room and call light. packet explained. Pt and sister deny needs or concerns at this time
[2019-10-30] MEDS: CATHETER FLUSH 10 ML SYR IV SCH ×2 (19:44→19:45)
[2019-10-30] MEDS: DOCUSATE SODIUM 100 MG (COLACE) CAP PO SCH (20:38)
[2019-10-30] MEDS: ACETAMINOPHEN 500 MG TAB (TYLENOL) PO SCH (20:38)
[2019-10-30] MEDS ORDERED: CATHETER FLUSH 10 ML SYR IV SCH (22:00)
[2019-10-31] VITALS: BP 108/73
[2019-10-31] MEDS: IBUPROFEN 800 MG (MOTRIN) TAB PO SCH ×3 (02:25→17:31)
[2019-10-31 04:42] VITALS: BP 104/70
[2019-10-31] MEDS: ACETAMINOPHEN 500 MG TAB (TYLENOL) PO SCH ×3 (04:42→17:14)
[2019-10-31 05:09] LABS: BASOPHILS % (AUTO) 0 % (0-10); EOSINOPHILS # (AUTO) 0.1 10^3/uL (0.0-0.3); EOSINOPHILS % (AUTO) 1 % (0-10); HEMATOCRIT 32 % (35-52); HEMOGLOBIN 10.9 G/DL (11.5-16.0); LYMPHOCYTES # (AUTO) 2.4 X 10^3 (1.0-4.0); LYMPHOCYTES % (AUTO) 23 % (12-44); MEAN CORPUSCULAR HEMOGLOBIN 28 PG (25-34); MEAN CORPUSCULAR HGB CONC 34 G/DL (32-36); MEAN CORPUSCULAR VOLUME 81 FL (80-99); MEAN PLATELET VOLUME 10.6 FL (7.4-10.4); MONOCYTES % (AUTO) 9 % (0-12); NEUTROPHILS # (AUTO) 7.2 X 10^3 (1.8-7.8); NEUTROPHILS % (AUTO) 67 % (42-75); PLATELET COUNT 239 10^3/uL (130-400); RED CELL DISTRIBUTION WIDTH 13.3 % (10.0-14.5); WHITE BLOOD COUNT 10.7 10^3/uL (4.3-11.0)
[2019-10-31] MEDS ORDERED: IBUP-1780 PO (06:28)
[2019-10-31] MEDS ORDERED: ACET-93 PO (06:28)
[2019-10-31] MEDS ORDERED: DCS100C PO (06:28)
[2019-10-31] MEDS ORDERED: OXYC5TAB96 PO (06:28)
--- NOTE | 2019-10-31 06:34 | Discharge Summary ---
Diagnosis/Chief Complaint Date of Admission Oct 30, 2019 at 05:09 Date of Discharge October 31, 2019 Discharge Date: Oct 31, 2019 Discharge Time: 18:00 Admission Diagnosis Admission Diagnosis Intrauterine at 39 weeks Discharge Diagnosis Intrauterine at 39 weeks--delivered Reason Hospital Visit Ms. Vaz, at 39 1/7 weeks, presents for Pitocin Induction of Labor. Discharge Summary Hospital Course Was the Problem List Reviewed?: Yes Hospital Course Ms. Vaz, 39 weeks gestation, was admitted for Pitocin Induction of Labor. Once admitted and Pitocin started, I artificially ruptured her membranes. She received an epidural for antepartum pain management. She progressed to complete. She was given a Pudendal Block to assist with pain management just prior to delivery. She delivered a healthy viable male over a midline episiotomy with complications She was started on IV and oral pain management after delivery along with other care. The remainder of her hospitalization was unremarkable. Her vital signs remained stable throughout her hospitalization On day one, she will be discharge to home with instructions, prescriptions, and a follow up appointment. Labs Laboratory Tests 10/30/19 05:25: Urine Specific [place] 1.025H, Urine Leukocyte Esterase 1+H, Urine WBC 5-10H, Urine Bacteria MODERATEH 10/30/19 05:50: Mean Platelet Volume 10.6H 10/31/19 04:35: Mean Platelet Volume 10.6H, Red Blood Count 3.92L, Hemoglobin 10.9L, Hematocrit 32L Procedures None. Discharge Physical Examination Allergies: Coded Allergies: cyclobenzaprine (Verified Allergy, Unknown, 10/30/19) Vitals & I&Os Vital Signs Date Time Temp Pulse Resp B/P (MAP) Pulse Ox O2 Delivery O2 Flow Rate FiO2 10/31/19 04:42 36.8 78 18 104/70 (81) 97 Room Air General Appearance: Alert, Oriented X3, Cooperative HEENT: Atraumatic Respiratory: Clear to Auscultation, Normal Air Movement Cardiovascular: Regular Rate, No Murmurs Abdominal: Normal Bowel Sounds, Soft Extremities: No Clubbing, No Cyanosis Skin: No Rashes Neuro: Normal Gait, Normal Speech Psych/Mental Status: Mental Status NL Discharge Home Medications Reviewed and agree with Discharge Medication list on patient's Discharge Instruction sheet Instructions to Patient/Family Please see electronic discharge instructions given to patient. Clinical Quality Measures DVT/VTE Risk/Contraindication: Risk Factor Score Per Nursin RFS Level Per Nursing on Admit: 1=Low/No VTE PPSTACEY SCHRADER DO Oct 31, 2019 06:34
[2019-10-31] MEDS ORDERED: PRENATAL VITAMIN 1 EA TAB PO SCH (07:00)
[2019-10-31] MEDS: DOCUSATE SODIUM 100 MG (COLACE) CAP PO SCH (07:59)
[2019-10-31 08:00] VITALS: BP 109/62
--- NOTE | 2019-10-31 08:00 | NUR ---
A.M. ASSESSMENT COMPLETED. VSS. SET UP SHOWER. SISTER FEEDING WHEN ENTERED ROOM.
--- NOTE | 2019-10-31 08:20 | NUR ---
DR. DE LA TORRE IN TO SEE BABY.
--- NOTE | 2019-10-31 08:33 | Anesthesia-Regional Post-Op ---
Regional Patient Condition Mental Status: Alert, Oriented x3 Circulation: Same as Pre-Op Headache: Absent Sensation: Full Recovery Motor Block: Absent Post Op Complications Complications None Follow Up Care/Instructions Patient Instructions None needed. Anesthesia/Patient Condition Patient is doing well, no complaints, stable vital signs, no apparent adverse anesthesia problems. No complications reported per nursing. TIMOTHY KIMBALL CRNA Oct 31, 2019 08:32
--- NOTE | 2019-10-31 10:08 | NUR ---
MMR GIVEN SUBQ IN RIGHT UPPER ARM. SITE CLEAR.
--- NOTE | 2019-10-31 10:13 | NUR ---
TDAP GIVEN IM IN LEFT DELTOID. SITE CLEAR. CARING FOR IN ROOM. PT'S SISTER APPEARS TO DO MOST OF CARE.
--- NOTE | 2019-10-31 12:30 | NUR ---
RESTING AT INTERVALS. SISTER AT BEDSIDE. HAS BEEN IN TO ASSIST PT.
[2019-10-31 12:45] VITALS: BP 98/54
--- NOTE | 2019-10-31 13:30 | NUR ---
STORK MEAL TAKEN.
--- NOTE | 2019-10-31 14:30 | NUR ---
CONTINUES TO CARE FOR IN ROOM. PT'S SISTER HELPING.
[2019-10-31 16:30] VITALS: BP 113/63
--- NOTE | 2019-10-31 16:30 | NUR ---
CARING FOR IN ROOM. VSS. WAITING FOR INFANT'S LABS TO BE DONE TO SEE IF INFANT IS ABLE TO BE DISCHARGED THIS EVENING.
--- NOTE | 2019-10-31 16:45 | NUR ---
DISCHARGE INSTRUCTIONS REVIEWED WITH COPY TO PT. RXS GIVEN. STATES UNDERSTANDING OF ALL INSTRUCTIONS AND NEED TO F/U SCHEDULED AND NEEDED. PT'S SISTER ALSO ATTENTIVE TO INSTRUCTIONS. STATES UNDERSTANDING OF ROOMING-IN IF INFANT UNABLE TO BE DISCHARGED THIS EVENING.
--- NOTE | 2019-10-31 17:00 | NUR ---
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 SALINE LOCK HAS BEEN D/C'ED.
[2019-10-31 18:45] VITALS: BP 113/63
--- NOTE | 2019-10-31 18:45 | NUR ---
PT'S SISTER WILL GET RXS FOR PT R/T PT HAVING TO STAY A ROOMING-IN PARENT. DISMISSED FROM WS IN STABLE CONDITION. 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
== END 2019-10-31 18:45 | disposition home or self-care (01) | DRG 807 ==
LOC: LDRP 05:09
PROVIDERS: ADMIT Obstetrics & Gynecology; ATTEND Obstetrics & Gynecology
PROC: 10E0XZZ Delivery of Products of Conception, External Approach (ICD-10-PCS; principal; 2019-10-30)
PROC: 0W8NXZZ Division of Female Perineum, External Approach (ICD-10-PCS; 2019-10-30)
PROC: 10907ZC Drainage of Amniotic Fluid, Therapeutic from Products of Conception, Via Natural or Artificial Opening (ICD-10-PCS; 2019-10-30)
DX: O80 Encounter for full-term uncomplicated delivery (principal); Z37.0 Single live birth; Z3A.39 39 weeks gestation of pregnancy
CPT/HCPCS: 36415; 81000; 85025; 86850; 86900; 86901; 87088; 90707; 90715

== ENCOUNTER 2019-11-18 13:14 | Emergency (ER) | payer MEDICAID ==
[~2019-11-18] VITALS: Ht 175.3 cm; Wt 113.6 kg
[~2019-11-18 13:14] MED LIST changes: +ACET-93 PO; +DCS100C PO; +IBUP-1780 PO; +LAMO150T4 PO; +OXYC5TAB96 PO
--- OUTSIDE RECORDS SUMMARY | 2019-11-18 13:20 | XMS REPORT | Continuity of Care Document ---
Author Organization Unknown Address Unknown Phone Unavailable Allergies Active Description Code Type Severity Reaction Onset Reported/Identified Relationship to Patient Clinical Status Yes No Known Drug Allergies [id number] Drug Allergy Unknown N/A 04/06/2015 Yes cyclobenzaprine [id number] D rug Allergy Unknown N/A 10/30/2019 Medications There is no data. Problems Date Dx Coded Attending Type Code Diagnosis Diagnosed By 04/06/2015 JOCELINE SANTOS APRN Ot G40.909 EPILEPSY, UNSP, NOT INTRACTABLE, WITHOUT 04/06/2015 JOCELINE SANTOS APRN Ot S60.212A CONTUSION OF LEFT WRIST, INITIAL ENCOUNT 04/06/2015 JOCELINE SANTOS APRN Ot W19.XXXA UNSPECIFIED FALL, INITIAL ENCOUNTER 04/06/2015 JOCELINE SANTOS APRN Ot Y99 .8 OTHER EXTERNAL CAUSE STATUS 09/08/2019 LACHELLE FABIAN MD Ot G40.909 EPILEPSY, UNSP, NOT INTRACTABLE, WITHOUT 09/08/2019 LACHELLE FABIAN MD Ot O26.893 OTH RELATED CONDITIONS, THIRD 09/08/2019 LACHELLE FABIAN MD Ot O99.353 DISEASES OF THE NERVOUS SYS COMP PREGNAN 09/08/2019 LACHELLE FABIAN MD Ot R56. 9 UNSPECIFIED CONVULSIONS 09/08/2019 LACHELLE FABIAN MD Ot R82. 71 BACTERIURIA 09/08/2019 LACHELLE FABIAN MD Ot Z3A. 31 31 WEEKS GESTATION OF 09/12/2019 LACHELLE FABIAN MD Ot G40.909 EPILEPSY, UNSP, NOT INTRACTABLE, WITHOUT 09/12/2019 LACHELLE FABIAN MD Ot O26.893 OTH RELATED CONDITIONS, THIRD 09/12/2019 LACHELLE FABIAN MD Ot O99.353 DISEASES OF THE NERVOUS SYS COMP PREGNAN 09/12/2019 LACHELLE FABIAN MD Ot R56. 9 UNSPECIFIED CONVULSIONS 09/12/2019 LACHELLE FABIAN MD Ot R82. 71 BACTERIURIA 09/12/2019 LACHELLE FABIAN MD Ot Z3A. 31 31 WEEKS GESTATION OF 10/31/2019 SEALS STACEY BOWER E Ot O80 ENCOUNTER FOR FULL-TERM UNCOMPLICATED DE 10/31/2019 STACEY DALE DO E Ot Z37.0 SINGLE LIVE 10/31/2019 STACEY DALE DO Ot Z3A.3 9 39 WEEKS GESTATION OF Procedures Code Description Performed By Per formed On [id number] DI VISION OF FEMALE PERINEUM, EXTERNAL AP 10/30/[id number] HERNANDEZ OF [place], THERAP FROM POC 10/30/2019 [id number] DE LIVERY OF PRODUCTS OF CONCEPTION, EXTE 10/30/2019 Results Test Result Range Complete urinalysis with reflex to cultu re - 04/01/19 22:08 Urine color determination YELLOW NRG Urine clarity determination CLOUDY NR G Urine pH measurement by test strip 6.5 5-9 Specific gravity of urine by test strip 1.025 1.016-1.022 Urine protein assay by test strip, semi-quantitative NEGATIVE NEGATIVE Urine glucose detection by automated test strip NE GATIVE NEGATIVE Erythrocytes detection in urine sediment by light micr oscopy NEGATIVE NEGATIVE Urine ketones detection by automated test strip 3+ NEGATIVE Urine nitrite detection by test strip NEGATIVE NEGATIVE Urine total bilirubin detection by test strip NEGA TIVE NEGATIVE Urine urobilinogen measurement by automated test strip (mass/volume) 0.2 mg/dL < = 1.0 Urine leukocyte esterase detection by dipstick 3+ NEGATIVE Automated urine sediment erythrocyte cou nt by microscopy (number/high power field) NONE NRG Automated urine sediment leukocyte count by microscopy (number/high power field) [HPF] NRG Bacteria detection in urine sediment by light microsco py FEW NRG Squamous epithelial cells detection in u rine sediment by light microscopy 10-25 NRG Crystals detection in urine sediment by light microsco py NONE NRG Casts detection in urine sediment by light microscopy NONE NRG Mucus detection in urine sediment by light microscopy MODERATE NRG Complete urinalysis with reflex to culture YES NRG Complete blood count (CBC) with automate d white blood cell (WBC) differential - 04/01/19 22:45 Blood leukocytes automated count (number/volume) 7.8 10*3/uL 4.3-11.0 Blood erythrocytes automated count (number/volume) 4.91 10*6/uL 4.35-5.85 Venous blood hemoglobin measurement (mass/volume) 13.9 g/dL 11.5-16.0 Blood hematocrit (volume fraction) 40 % 35-52 Automated erythrocyte mean corpuscular volume 81 [ foz_us] 80-99 Automated erythrocyte mean corpuscular h emoglobin (mass per erythrocyte) 28 pg 25-34 Automated erythrocyte mean corpuscular h emoglobin concentration measurement (mass/volume) 35 g/dL 32-36 Automated erythrocyte distribution width ratio 11. 8 % 10.0- 14.5 Automated blood platelet count (count/volume) 229 10*3/uL 130-400 Automated blood platelet mean volume measurement 10.1 [foz_us] 7.4-10.4 Automated blood neutrophils/100 leukocytes 62 % 42-75 Automated blood lymphocytes/100 leukocytes 29 % 12-44 Blood monocytes/100 leukocytes 8 % 0-12 Automated blood eosinophils/100 leukocytes 2 % 0-10 Automated blood basophils/100 leukocytes 0 % 0-10 Blood neutrophils automated count (number/volume) 4.8 10*3 1.8-7.8 Blood lymphocytes automated count (number/volume) 2.2 10*3 1.0-4.0 Blood monocytes automated count (number/volume) 0. 6 10*3 0.0-1.0 Automated eosinophil count 0.1 10*3/uL 0 .0-0.3 Automated blood basophil count (count/volume) 0.0 10*3/uL 0.0-0.1 Whole blood basic metabolic panel - 03/11 07/26 22:45 Serum or plasma sodium measurement (moles/volume) 140 mmol/L 135-145 Serum or plasma potassium measurement (moles/volume) 3.8 mmol/L 3.6-5.0 Serum or plasma chloride measurement (moles/volume) 101 mmol/L 98-107 Carbon dioxide 24 mmol/L 21-32 Serum or plasma anion gap determination (moles/volume) 15 mmol/L 5-14 Serum or plasma urea nitrogen measurement (mass/volume ) 5 mg/dL 7-18 Serum or plasma creatinine measurement (mass/volume) 0.62 mg/dL 0.60-1.30 Serum or plasma urea nitrogen/creatinine mass ratio 8 NRG Serum or plasma creatinine measurement w ith calculation of estimated glomerular filtration rate > NRG Serum or plasma glucose measurement (mass/volume) 96 mg/dL 70-105 Serum or plasma calcium measurement (mass/volume) 9.9 mg/dL 8.5-10.1 Bacterial urine culture - 04/01/19 23:30 Bacterial urine culture NG NRG Complete urinalysis with reflex to cultu re - 09/08/19 18:09 Urine color determination YELLOW NRG Urine clarity determination SLT CLOUDY NRG Urine pH measurement by test strip 6.0 5-9 Specific gravity of urine by test strip >= 1.016-1.022 Urine protein assay by test strip, semi-quantitative TRACE NEGATIVE Urine glucose detection by automated test strip NE GATIVE NEGATIVE Erythrocytes detection in urine sediment by light micr oscopy NEGATIVE NEGATIVE Urine ketones detection by automated test strip TR WARREN NEGATIVE Urine nitrite detection by test strip NEGATIVE NEGATIVE Urine total bilirubin detection by test strip NEGA TIVE NEGATIVE Urine urobilinogen measurement by automated test strip (mass/volume) 0.2 mg/dL < = 1.0 Urine leukocyte esterase detection by dipstick TRA CE NEGATIVE Automated urine sediment erythrocyte cou nt by microscopy (number/high power field) NONE NRG Automated urine sediment leukocyte count by microscopy (number/high power field) [HPF] NRG Bacteria detection in urine sediment by light microsco py LARGE NRG Squamous epithelial cells detection in u rine sediment by light microscopy 5-10 NRG Crystals detection in urine sediment by light microsco py NONE NRG Casts detection in urine sediment by light microscopy NONE NRG Mucus detection in urine sediment by light microscopy SMALL NRG Complete urinalysis with reflex to culture YES NRG Bacterial urine culture - 09/08/19 18:09 Bacterial urine culture 3 OR MORE NRG COLONY COUNT >100,000/ML NRG SUSCEPTIBILITY GRAM POSITIVES, SUGGESTING PROBABLE NRG MRSA SCREEN COLLECTION CONTAMINATION WITH SKIN MERISSA RA NRG RAPID ID NO SUSCEPTIBILITY PERFORMED N RG Complete blood count (CBC) with automate d white blood cell (WBC) differential - 09/08/19 18:22 Blood leukocytes automated count (number/volume) 9.4 10*3/uL 4.3-11.0 Blood erythrocytes automated count (number/volume) 4.55 10*6/uL 4.35-5.85 Venous blood hemoglobin measurement (mass/volume) 13.0 g/dL 11.5-16.0 Blood hematocrit (volume fraction) 37 % 35-52 Automated erythrocyte mean corpuscular volume 82 [ foz_us] 80-99 Automated erythrocyte mean corpuscular h emoglobin (mass per erythrocyte) 29 pg 25-34 Automated erythrocyte mean corpuscular h emoglobin concentration measurement (mass/volume) 35 g/dL 32-36 Automated erythrocyte distribution width ratio 12. 1 % 10.0- 14.5 Automated blood platelet count (count/volume) 271 10*3/uL 130-400 Automated blood platelet mean volume measurement 10.4 [foz_us] 7.4-10.4 Automated blood neutrophils/100 leukocytes 75 % 42-75 Automated blood lymphocytes/100 leukocytes 17 % 12-44 Blood monocytes/100 leukocytes 7 % 0-12 Automated blood eosinophils/100 leukocytes 1 % 0-10 Automated blood basophils/100 leukocytes 0 % 0-10 Blood neutrophils automated count (number/volume) 7.0 10*3 1.8-7.8 Blood lymphocytes automated count (number/volume) 1.6 10*3 1.0-4.0 Blood monocytes automated count (number/volume) 0. 6 10*3 0.0-1.0 Automated eosinophil count 0.1 10*3/uL 0 .0-0.3 Automated blood basophil count (count/volume) 0.0 10*3/uL 0.0-0.1 PT panel in platelet poor plasma by coag ulation assay - 09/08/19 18:22 Prothrombin time (PT) in platelet poor plasma by coagu lation assay 13.4 s 12.2-14.7 INR in platelet poor plasma or blood by coagulation as say 1.0 0.8-1.4 Comprehensive metabolic panel - 09/08/19 18:22 Serum or plasma sodium measurement (moles/volume) 137 mmol/L 135-145 Serum or plasma potassium measurement (moles/volume) 4.2 mmol/L 3.6-5.0 Serum or plasma chloride measurement (moles/volume) 103 mmol/L 98-107 Carbon dioxide 21 mmol/L 21-32 Serum or plasma anion gap determination (moles/volume) 13 mmol/L 5-14 Serum or plasma urea nitrogen measurement (mass/volume ) 7 mg/dL 7-18 Serum or plasma creatinine measurement (mass/volume) 0.56 mg/dL 0.60-1.30 Serum or plasma urea nitrogen/creatinine mass ratio 13 NRG Serum or plasma creatinine measurement w ith calculation of estimated glomerular filtration rate > NRG Serum or plasma glucose measurement (mass/volume) 96 mg/dL 70-105 Serum or plasma calcium measurement (mass/volume) 9.2 mg/dL 8.5-10.1 Serum or plasma total bilirubin measurement (mass/volu me) 0.4 mg/dL 0.1-1.0 Serum or plasma alkaline phosphatase rogelio surement (enzymatic activity/volume) 142 U/L 40-136 Serum or plasma aspartate aminotransfera se measurement (enzymatic activity/volume) 18 U/L 5-34 Serum or plasma alanine aminotransferase measurement (enzymatic activity/volume) 15 U/L 0-55 Serum or plasma protein measurement (mass/volume) 6.9 g/dL 6.4-8.2 Serum or plasma albumin measurement (mass/volume) 3.5 g/dL 3.2-4.5 CALCIUM CORRECTED 9.6 mg/dL 8.5-10.1 Complete urinalysis with reflex to cultu re - 10/30/19 05:25 Urine color determination YELLOW NRG Urine clarity determination SL CLOUDY N RG Urine pH measurement by test strip 6.5 5-9 Specific gravity of urine by test strip 1.025 1.016-1.022 Urine protein assay by test strip, semi-quantitative NEGATIVE NEGATIVE Urine glucose detection by automated test strip NE GATIVE NEGATIVE Erythrocytes detection in urine sediment by light micr oscopy NEGATIVE NEGATIVE Urine ketones detection by automated test strip NE GATIVE NEGATIVE Urine nitrite detection by test strip NEGATIVE NEGATIVE Urine total bilirubin detection by test strip NEGA TIVE NEGATIVE Urine urobilinogen measurement by automated test strip (mass/volume) 0.2 mg/dL < = 1.0 Urine leukocyte esterase detection by dipstick 1+ NEGATIVE Automated urine sediment erythrocyte cou nt by microscopy (number/high power field) NONE NRG Automated urine sediment leukocyte count by microscopy (number/high power field) [HPF] NRG Bacteria detection in urine sediment by light microsco py MODERATE NRG Squamous epithelial cells detection in u rine sediment by light microscopy 5-10 NRG Crystals detection in urine sediment by light microsco py NONE NRG Casts detection in urine sediment by light microscopy NONE NRG Mucus detection in urine sediment by light microscopy NEGATIVE NRG Complete urinalysis with reflex to culture YES NRG Bacterial urine culture - 10/30/19 05:25 Bacterial urine culture 3 OR MORE NRG COLONY COUNT >100,000/ML NRG SUSCEPTIBILITY GRAM POSITIVES, SUGGESTING PROBABLE NRG MRSA SCREEN COLLECTION CONTAMINATION WITH SKIN MERISSA RA NRG RAPID ID NO SUSCEPTIBILITY PERFORMED N RG Complete blood count (CBC) with automate d white blood cell (WBC) differential - 10/30/19 05:50 Blood leukocytes automated count (number/volume) 8.3 10*3/uL 4.3-11.0 Blood erythrocytes automated count (number/volume) 4.44 10*6/uL 4.35-5.85 Venous blood hemoglobin measurement (mass/volume) 12.6 g/dL 11.5-16.0 Blood hematocrit (volume fraction) 36 % 35-52 Automated erythrocyte mean corpuscular volume 80 [ foz_us] 80-99 Automated erythrocyte mean corpuscular h emoglobin (mass per erythrocyte) 28 pg 25-34 Automated erythrocyte mean corpuscular h emoglobin concentration measurement (mass/volume) 35 g/dL 32-36 Automated erythrocyte distribution width ratio 13. 1 % 10.0- 14.5 Automated blood platelet count (count/volume) 231 10*3/uL 130-400 Automated blood platelet mean volume measurement 10.6 [foz_us] 7.4-10.4 Automated blood neutrophils/100 leukocytes 65 % 42-75 Automated blood lymphocytes/100 leukocytes 24 % 12-44 Blood monocytes/100 leukocytes 10 % 0-12 Automated blood eosinophils/100 leukocytes 2 % 0-10 Automated blood basophils/100 leukocytes 0 % 0-10 Blood neutrophils automated count (number/volume) 5.4 10*3 1.8-7.8 Blood lymphocytes automated count (number/volume) 2.0 10*3 1.0-4.0 Blood monocytes automated count (number/volume) 0. 8 10*3 0.0-1.0 Automated eosinophil count 0.1 10*3/uL 0 .0-0.3 Automated blood basophil count (count/volume) 0.0 10*3/uL 0.0-0.1 Blood type T Indirect antibody screen pa elmer - 10/30/19 05:50 WRISTBAND NUMBER [id number] NRG ABO+Rh group BP NRG Blood group antibody screen NEGATIVE NR G Complete blood count (CBC) with automate d white blood cell (WBC) differential - 10/31/19 04:35 Blood leukocytes automated count (number/volume) 10.7 10*3/uL 4.3-11.0 Blood erythrocytes automated count (number/volume) 3.92 10*6/uL 4.35-5.85 Venous blood hemoglobin measurement (mass/volume) 10.9 g/dL 11.5-16.0 Blood hematocrit (volume fraction) 32 % 35-52 Automated erythrocyte mean corpuscular volume 81 [ foz_us] 80-99 Automated erythrocyte mean corpuscular h emoglobin (mass per erythrocyte) 28 pg 25-34 Automated erythrocyte mean corpuscular h emoglobin concentration measurement (mass/volume) 34 g/dL 32-36 Automated erythrocyte distribution width ratio 13. 3 % 10.0- 14.5 Automated blood platelet count (count/volume) 239 10*3/uL 130-400 Automated blood platelet mean volume measurement 10.6 [foz_us] 7.4-10.4 Automated blood neutrophils/100 leukocytes 67 % 42-75 Automated blood lymphocytes/100 leukocytes 23 % 12-44 Blood monocytes/100 leukocytes 9 % 0-12 Automated blood eosinophils/100 leukocytes 1 % 0-10 Automated blood basophils/100 leukocytes 0 % 0-10 Blood neutrophils automated count (number/volume) 7.2 10*3 1.8-7.8 Blood lymphocytes automated count (number/volume) 2.4 10*3 1.0-4.0 Blood monocytes automated count (number/volume) 1. 0 10*3 0.0-1.0 Automated eosinophil count 0.1 10*3/uL 0 .0-0.3 Automated blood basophil count (count/volume) 0.0 10*3/uL 0.0-0.1 Encounters ACCT No. Visit Date/Time Discharge Status Pt. 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
[2019-11-18] MEDS ORDERED: LEVETIRACETAM INJECTION 1,000 MG in NS (IVPB) 100 ML IV STA (13:26)
[2019-11-18] MEDS ORDERED: NS IV 1000 ML 1,000 ML IV SCH (13:26)
[2019-11-18] MEDS ORDERED: ACETAMINOPHEN 325 MG TABLET PO ONE (13:30)
[2019-11-18 13:52] LABS: BASOPHILS % (AUTO) 0 % (0-10); EOSINOPHILS % (AUTO) 3 % (0-10); HEMATOCRIT 38 % (35-52); HEMOGLOBIN 12.6 G/DL (11.5-16.0); LYMPHOCYTES % (AUTO) 43 % (12-44); MEAN CORPUSCULAR HEMOGLOBIN 27 PG (25-34); MEAN CORPUSCULAR HGB CONC 33 G/DL (32-36); MEAN CORPUSCULAR VOLUME 82 FL (80-99); MEAN PLATELET VOLUME 10.2 FL (7.4-10.4); MONOCYTES % (AUTO) 7 % (0-12); NEUTROPHILS # (AUTO) 2.1 X 10^3 (1.8-7.8); NEUTROPHILS % (AUTO) 47 % (42-75); PLATELET COUNT 331 10^3/uL (130-400); RED CELL DISTRIBUTION WIDTH 12.1 % (10.0-14.5); WHITE BLOOD COUNT 4.5 10^3/uL (4.3-11.0)
[2019-11-18 13:53] LABS: EOSINOPHILS # (AUTO) 0.2 10^3/uL (0.0-0.3); LYMPHOCYTES # (AUTO) 1.9 X 10^3 (1.0-4.0); MONOCYTES # (AUTO) 0.3 X 10^3 (0.0-1.0)
[2019-11-18 14:16] LABS: ALANINE AMINOTRANSFERASE 16 U/L (0-55); ALBUMIN 3.8 GM/DL (3.2-4.5); ALKALINE PHOSPHATASE 122 U/L (40-136); BILIRUBIN,TOTAL 0.4 MG/DL (0.1-1.0); BUN/CREATININE RATIO 6; CALCIUM 9.1 MG/DL (8.5-10.1); CARBON DIOXIDE 24 MMOL/L (21-32); CHLORIDE 105 MMOL/L (98-107); GFR ESTIMATED > 60; GLUCOSE 110 MG/DL (70-105); POTASSIUM 3.5 MMOL/L (3.6-5.0); SODIUM 142 MMOL/L (135-145); TOTAL PROTEIN 6.5 GM/DL (6.4-8.2)
[2019-11-18] MEDS ORDERED: KCL 20 MEQ TAB (K-DUR) PO ONE (14:45)
[2019-11-18 15:13] LABS: BILIRUBIN,URINE NEGATIVE (NEGATIVE); CLARITY,URINE CLEAR; COLOR,URINE YELLOW; GLUCOSE, URINE (UA) NEGATIVE (NEGATIVE); KETONES,URINE NEGATIVE (NEGATIVE); LEUKOCYTE ESTERASE ,URINE 1+ (NEGATIVE); NITRITE,URINE NEGATIVE (NEGATIVE); PH,URINE 7.5 (5-9); PROTEIN,URINE NEGATIVE (NEGATIVE)
[2019-11-18 15:14] LABS: BACTERIA,URINE FEW /HPF; WBC,URINE 25-50 /HPF
[2019-11-18] MEDS ORDERED: DIAZEPAM 5 MG (VALIUM) TABLET PO ONE (15:45)
--- NOTE | 2019-11-18 15:45 | ED General ---
General Chief Complaint: Neurological Problems History of Present Illness Date Seen by Provider: Nov 18, 2019 Time Seen by Provider: 13:19 Initial Comments The patient is a 24-year-old female with a history of longstanding seizure disorder on Lamictal. She just gave to a healthy infant by vaginal delivery about 3 weeks ago. Her was not complicated by any preeclampsia. Yolis presents for evaluation of an apparent brief breakthrough seizure at home just prior to arrival. This was less than a minute in length. Patient states that her seizures are typically generalized however she states that she does have some recollection of this particular seizure. She started to feel prodromal symptoms and got down on the floor to avoid injury. She then had convulsions for less than a minute, followed by a period of mild postictal confusion which had largely cleared by the time EMS arrived to the emergency department with the patient. Vital signs were appropriate enroute and are appropriate here. Patient states she was feeling well earlier today before the onset of symptoms. She denies associated fevers, nausea or vomiting, headache, focal weakness, n umbness, tingling, neck stiffness/pain/meningismus, vision changes, shortness of breath or chest pain. She denies any abdominal pain, flank pain, back pain, dysuria or hematuria, changes in bowel habits. She denies any unusual vaginal bleeding or discharge. The patient is alert and pleasantly and appropriately interactive and oriented 4 and moves all extremities equally and is in absolutely no acute distress upon initial assessment here in the emergency department. Allergies and Home Medications Allergies Coded Allergies: cyclobenzaprine (Verified Allergy, Unknown, 10/30/19) Home Medications Acetaminophen 500 Mg Tablet, 1,000 MG PO Q6HR Prescribed by: STACEY DALE on 10/31/19627 Docusate Sodium 100 Mg Capsule, 100 MG PO BID Prescribed by: STACEY OCHOAS on 10/31/19627 Ibuprofen 800 Mg Tablet, 800 MG PO Q8H Prescribed by: STACEY DALE on 10/31/19627 Lamotrigine 150 Mg Tablet, 150 MG PO BID, (Reported) Oxycodone HCl 5 Mg Tablet, 5 MG PO Q6H PRN for PAIN-SEVERE (8-10) Prescribed by: STACEY DALE on 10/31/19627 Patient Home Medication List Home Medication List Reviewed: Yes Review of Systems Review of Systems Constitutional: see HPI All Other Systems Reviewed Negative Unless Noted: Yes (Negative excepted noted.) Past Dqonzij-Xakqbd-Qamkuz Hx Past Med/Social Hx: Reviewed Nursing Past Med/Soc Hx Patient Social History 2nd Hand Smoke Exposure: No Recent Hopitalizations: No Seasonal Allergies Seasonal Allergies: Yes Past Medical History Surgeries: Yes Adenoidectomy, Gallbladder, Tonsillectomy Respiratory: No Cardiac: No Neurological: Yes Seizure Disorder Reproductive Disorders: No Genitourinary: No Gastrointestinal: No Musculoskeletal: No Endocrine: No HEENT: No Cancer: No Psychosocial: No Integumentary: No Blood Disorders: No Family Medical History Reviewed Nursing Family Hx Patient reports no known family medical history. Physical Exam Vital Signs Capillary Refill : Height, Weight, BMI Height: 5'9" Weight: 277lbs. oz. 125.937090ho; 39.89 BMI Method:Stated General Appearance: No Apparent Distress Comments This is a young female appearing nontoxic and in no acute distress. Head is normocephalic and atraumatic; no hemotympanum bilaterally and absolutely no signs of trauma to head or scalp or face or neck. Neck is supple and nontender. Oropharynx is moist. Lungs are clear to auscultation at all stations. There is a normal S1 and S2 without rubs or gallops and capillary refill is appropriate, less than 2 seconds globally. Abdomen is soft, nontender nondistended. Skin is warm and dry without cyanosis, clubbing or edema. Psychiatrically, the patient demonstrates appropriate mood and affect and is alert. Neurologically, cranial nerves II through XII are intact and there are no lateralizing deficits noted. Speech is normal. Language is normal. Coordination is normal. There is no dysmetria with leyupo-ka-tptu or kvkk-ve-rrau bilaterally. Strength is 5 out of 5 in all joints of bilateral upper and lower extremities. Sensation is intact to light touch in bilateral upper and lower extremities. Visual ojeda are intact to confrontation and finger counting bilaterally. The patient and relates with a narrow, steady gait here in the emergency department and is alert and oriented 4. Progress/Results/Core Measures Suspected Sepsis SIRS Temperature: Pulse: Respiratory Rate: Laboratory Tests 11/18/19 13:35: White Blood Count 4.5 Blood Pressure / Mean: Laboratory Tests 11/18/19 13:35: Creatinine 1.00, Platelet Count 331, Total Bilirubin 0.4 Results/Orders Lab Results Laboratory Tests Test 11/18/19 13:35 11/18/19 15:00 Range/Units White Blood Count 4.5 4.3-11.0 10^3/uL Red Blood Count 4.68 4.35-5.85 10^6/uL Hemoglobin 12.6 11.5-16.0 G/DL Hematocrit 38 35-52 % Mean Corpuscular Volume 82 80-99 FL Mean Corpuscular Hemoglobin 27 25-34 PG Mean Corpuscular Hemoglobin Concent 33 32-36 G/DL Red Cell Distribution Width 12.1 10.0-14.5 % Platelet Count 331 130-400 10^3/uL Mean Platelet Volume 10.2 7.4-10.4 FL Neutrophils (%) (Auto) 47 42-75 % Lymphocytes (%) (Auto) 43 12-44 % Monocytes (%) (Auto) 7 0-12 % Eosinophils (%) (Auto) 3 0-10 % Basophils (%) (Auto) 0 0-10 % Neutrophils # (Auto) 2.1 1.8-7.8 X 10^3 Lymphocytes # (Auto) 1.9 1.0-4.0 X 10^3 Monocytes # (Auto) 0.3 0.0-1.0 X 10^3 Eosinophils # (Auto) 0.2 0.0-0.3 10^3/uL Basophils # (Auto) 0.0 0.0-0.1 10^3/uL Sodium Level 142 135-145 MMOL/L Potassium Level 3.5 L 3.6-5.0 MMOL/L Chloride Level 105 98-107 MMOL/L Carbon Dioxide Level 24 21-32 MMOL/L Anion Gap 13 5-14 MMOL/L Blood Urea Nitrogen 6 L 7-18 MG/DL Creatinine 1.00 0.60-1.30 MG/DL Estimat Glomerular Filtration Rate > 60 BUN/Creatinine Ratio 6 Glucose Level 110 H 70-105 MG/DL Calcium Level 9.1 8.5-10.1 MG/DL Corrected Calcium 9.3 8.5-10.1 MG/DL Total Bilirubin 0.4 0.1-1.0 MG/DL Aspartate Amino Transf (AST/SGOT) 18 5-34 U/L Alanine Aminotransferase (ALT/SGPT) 16 0-55 U/L Alkaline Phosphatase 122 40-136 U/L Total Protein 6.5 6.4-8.2 GM/DL Albumin 3.8 3.2-4.5 GM/DL Human Chorionic Gonadotropin, Quant < 5 <5 MIU/ML Urine Color YELLOW Urine Clarity CLEAR Urine pH 7.5 5-9 Urine Specific [place] 1.015 L 1.016-1.022 Urine Protein NEGATIVE NEGATIVE Urine Glucose (UA) NEGATIVE NEGATIVE Urine Ketones NEGATIVE NEGATIVE Urine Nitrite NEGATIVE NEGATIVE Urine Bilirubin NEGATIVE NEGATIVE Urine Urobilinogen 0.2 < = 1.0 MG/DL Urine Leukocyte Esterase 1+ H NEGATIVE Urine RBC (Auto) 2+ H NEGATIVE Urine RBC 5-10 H /HPF Urine WBC 25-50 H /HPF Urine Squamous Epithelial Cells 5-10 /HPF Urine Crystals NONE /LPF Urine Bacteria FEW H /HPF Urine Casts NONE /LPF Urine Mucus NEGATIVE /LPF Urine Culture Indicated YES My Orders Orders - MIRA REYNOLDS MD Cbc With Automated Diff (11/18/19 13:26) Comprehensive Metabolic Panel (11/18/19 13:26) Uric Acid (11/18/19 13:26) LDH (11/18/19 13:26) Ua Culture If Indicated (11/18/19 13:26) Hcg,Quantitative (11/18/19 13:26) Ed Iv/Invasive Line Start (11/18/19 13:26) Ns Iv 1000 Ml (Sodium Chloride 0.9%) (11/18/19 13:26) Levetiracetam Injection (Keppra Injectio (11/18/19 13:26) Acetaminophen Tablet/Caplet (Tylenol T (11/18/19 13:30) Potassium Chloride (Tablet) (K Dur Table (11/18/19 14:45) Urine Culture (11/18/19 15:00) Diazepam Tablet (Valium Tablet) (11/18/19 15:45) Medications Given in ED Current Medications Medications Dose Ordered Sig/Rosalba Route Start Time Stop Time Status Last Admin Dose Admin Acetaminophen 975 mg ONCE ONCE PO 11/18/19 13:30 11/18/19 13:31 DC 11/18/19 14:19 975 MG Vital Signs/I&O Capillary Refill : Progress Note : Time: 14:00 Progress Note Vital signs and clinical examination are reassuring and neurologic examination is nonfocal. 24-year-old female with long-standing history of seizure disorder on lamotrigine who presents for evaluation of a brief breakthrough seizure prior to arrival. As the patient is 3 weeks , we'll check labs as noted although very low suspicion for preeclampsia given completely appropriate blood pressure here. We will load with a dose of IV Keppra to prevent recurrent seizure. If workup is reassuring, anticipate discharge home with instructions to follow-up very closely with her neurologist within the next few days. Patient understands and agrees with this plan of care. 1515: Patient is resting comfortably in no acute distress upon reassessment. Workup as above is unremarkable for any evidence of acute process, aside from some evidence of possible urinary tract infection which we will treat with Macrobid. There is no proteinuria and LFTs are normal and the patient's blood pressure remains normal. No evidence of preeclampsia; case is discussed with Dr. Maravilla of [facility] who is in agreement that no further workup is needed for preeclampsia or other acute process at this time. We'll proceed with discharge. Patient is advised to follow-up with her neurologist in the next 2-4 days in the office for a reevaluation of her antiseizure therapy. I did try to contact her neurologist but he does not have an director of pulmonary unit modality by which he can be reached off-hours as far as I can tell. Patient understands that if she feels worse is that of better, has recurrent symptoms or any other new symptoms of concern that she should return right away for reevaluation. All questions are answered. Departure Impression Primary Impression: Other seizures Additional Impression: Acute cystitis without hematuria Disposition: 01 HOME, SELF-CARE Condition: Improved Departure-Patient Inst. Referrals: STACEY DALE DO (PCP) Primary Care Physician RUBIA MICHAEL MD (Family) Primary Care Physician Patient Instructions: Seizures Add. Discharge Instructions: Follow-up very closely with Dr. Michael, ideally within the next 2-4 days, for a reevaluation of your antiseizure medication regimen and further care. I also recommended that you follow up with your primary doctor within the next 2-4 days as well. Take the antibiotic as prescribed for treatment of urinary tract infection, until the prescription is gone. Return to the emergency room right away with recurrent or worsening symptoms or with any other new symptoms of concern. Scripts Nitrofurantoin Monohyd/M-Cryst (Macrobid 100 mg Capsule) 100 Mg Capsule 1 TAB PO BID for 5 Days, #10 CAP Prov: MIRA REYNOLDS MD 11/18/19 MIRA REYNOLDS MD Nov 18, 2019 15:45
[2019-11-18] MEDS ORDERED: NITR-65 PO (15:55)
[2019-11-18 16:15] VITALS: BP 115/72
[2019-11-18 22:55] LABS: URIC ACID 3.7 MG/DL (2.6-7.2)
[2019-11-19] MEDS ORDERED: LEVE500T99 PO (15:51)
== END 2019-11-18 16:15 | disposition home or self-care (01) ==
LOC: EDUNIT# 13:14 → ER FS 13:15
DX: G40.909 Epilepsy, unspecified, not intractable, without status epilepticus (principal); N30.90 Cystitis, unspecified without hematuria; Z88.8 Allergy status to other drugs, medicaments and biological substances
CPT/HCPCS: 36415; 80053; 81000; 83615; 84550; 84702; 85025; 87088

== ENCOUNTER 2019-11-19 14:04 | Emergency (ER) | payer MEDICAID ==
[~2019-11-19] VITALS: Ht 175.3 cm; Wt 113.6 kg
[~2019-11-19 14:04] MED LIST changes: +NITR-65 PO
[2019-11-19] MEDS ORDERED: LORazepam INJ 2 MG/ML (ATIVAN) VIAL IVP ONE (14:30)
--- NOTE | 2019-11-19 14:58 | ED Neurological Problem ---
General Chief Complaint: Neurological Problems Stated Complaint: SEIZURE Nursing Triage Note: Patient reports she felt well yesterday after being discharged from the ED, states she has not yet filled or taken her macrobid prescription for her UTI. She states she has been taking her lamictal as prescribed to her by her neurologist. Patient states she was with her mother when she had a seizure today. Nursing Sepsis Screen: No Definite Risk History of Present Illness Date Seen by Provider: Nov 19, 2019 Time Seen by Provider: 14:55 Initial Comments Pt brought by EMS from home for seizure. She was seen in the ED yesterday for seizure. She takes Lamictal for seizure disorder and her Neurologist is Dr. Michael. She was given 1000mg of Keppra last night. She had a seizure reportedly witnessed by her mother today at home and EMS notes she seemed post-ictal afterwards. She had labs done last night that were unremarkable, she was given Macrobid for a UTI which she has not gotten filled yet. Allergies and Home Medications Allergies Coded Allergies: cyclobenzaprine (Verified Allergy, Unknown, 10/30/19) Home Medications Acetaminophen 500 Mg Tablet, 1,000 MG PO Q6HR Prescribed by: STACEY DALE on 10/31/19627 Docusate Sodium 100 Mg Capsule, 100 MG PO BID Prescribed by: STACEY DALE on 10/31/19627 Ibuprofen 800 Mg Tablet, 800 MG PO Q8H Prescribed by: STACEY DALE on 10/31/19627 Lamotrigine 150 Mg Tablet, 150 MG PO BID, (Reported) Nitrofurantoin Monohyd/M-Cryst 100 Mg Capsule, 1 TAB PO BID Prescribed by: MIRA REYNOLDS on 11/18/19 0365 Oxycodone HCl 5 Mg Tablet, 5 MG PO Q6H PRN for PAIN-SEVERE (8-10) Prescribed by: STACEY DALE on 10/31/19627 Patient Home Medication List Home Medication List Reviewed: Yes Review of Systems Review of Systems Constitutional: no symptoms reported Eyes: No Symptoms Reported Ears, Nose, Mouth, Throat: no symptoms reported Respiratory: no symptoms reported Cardiovascular: no symptoms reported Gastrointestinal: no symptoms reported Skin: no symptoms reported Psychiatric/Neurological: Tonic Clonic Seizures Hematologic/Lymphatic: No Symptoms Reported Past Coohohw-Omdgjh-Idmxvq Hx Patient Social History Alcohol Use: Denies Use Recreational Drug Use: No Smoking Status: Never a Smoker 2nd Hand Smoke Exposure: No Recent Foreign Travel: No Contact w/Someone Who Travel: No Recent Infectious Disease Expo: No Recent Hopitalizations: No Physical Abuse: No Sexual Abuse: No Mistreated: No Fear: No Seasonal Allergies Seasonal Allergies: Yes Past Medical History Surgeries: Yes Adenoidectomy, Gallbladder, Tonsillectomy Respiratory: No Cardiac: No Neurological: Yes Seizure Disorder Reproductive Disorders: No Genitourinary: No Gastrointestinal: No Musculoskeletal: No Endocrine: No HEENT: No Cancer: No Psychosocial: No Integumentary: No Blood Disorders: No Family Medical History Patient reports no known family medical history. Physical Exam Vital Signs Vital Signs - First Documented 11/19/19 14:13 Temp 36.8 Pulse 88 Resp 22 B/P (MAP) 122/59 (80) Pulse Ox 98 O2 Delivery Room Air Capillary Refill : Less Than 3 Seconds Height, Weight, BMI Height: 5'9" Weight: 277lbs. oz. 125.906298gz; 36.00 BMI Method:Stated General Appearance: WD/WN, no apparent distress HEENT: PERRL/EOMI Neck: supple Respiratory: lungs clear, normal breath sounds, no respiratory distress Cardiovascular: regular rate, rhythm, no edema Gastrointestinal: non tender, soft Extremities: non-tender Neurologic/Psychiatric: no motor/sensory deficits, normal mood/affect, oriented x 3, other (Slow to answer questions but does answer appropriately) Motor/Sensory: no motor deficit, no sensory deficit Skin: normal color, warm/dry Progress/Results/Core Measures Results/Orders My Orders Orders - KERLINE DONG MD Lorazepam Injection (Ativan Injection) (11/19/19 14:30) Medications Given in ED Current Medications Medications Dose Ordered Sig/Rosalba Route Start Time Stop Time Status Last Admin Dose Admin Lorazepam 1 mg ONCE ONCE IVP 11/19/19 14:30 11/19/19 14:31 DC 11/19/19 14:36 1 MG Vital Signs/I&O 11/19/19 14:13 Temp 36.8 Pulse 88 Resp 22 B/P (MAP) 122/59 (80) Pulse Ox 98 O2 Delivery Room Air Blood Pressure Mean: 80 Progress Progress Note : Time: 15:48 Progress Note More alert now, did seem post-ictal on arrival. She is currently on Lamictal. Was given Keppra last night in the ED. I will prescribe Keppra for her to start, advised to call her Neurologist Dr. Michael tomorrow for follow up. Departure Impression Primary Impression: Seizure Disposition: HOME, SELF-CARE Condition: Improved Departure-Patient Inst. Decision time for Depature: 15:50 Referrals: STACEY DALE DO (PCP) Primary Care Physician RUBIA MICHAEL MD (Family) Primary Care Physician Patient Instructions: Seizures, Adult (DC) Add. Discharge Instructions: All discharge instructions reviewed with patient and/or family. Voiced understanding. Scripts Levetiracetam (Keppra) 500 Mg Tablet 500 MG PO BID, #60 TAB Prov: KERLINE DONG MD 11/19/19 KERLINE DONG MD Nov 19, 2019 14:58
[2019-11-19] MEDS ORDERED: LEVE500T99 PO (15:51)
[2019-11-19 16:44] VITALS: BP 124/78
== END 2019-11-19 16:44 | disposition home or self-care (01) ==
LOC: EDUNIT# 14:04 → ER FS 14:05
DX: G40.909 Epilepsy, unspecified, not intractable, without status epilepticus (principal); Z88.8 Allergy status to other drugs, medicaments and biological substances

== ENCOUNTER 2021-01-13 14:03 | Emergency (ER) | payer MEDICAID ==
[~2021-01-13] VITALS: Ht 175.2 cm; Wt 118.6 kg
[~2021-01-13 14:03] MED LIST changes: +LEVE500T99 PO; -MONT10TA26 PO; +MONT10TA32 PO; +OXC5T PO; -OXYC5TAB96 PO; -PANT40TA3 PO; +PANT40TA52 PO
--- NOTE | 2021-01-13 15:39 | ED Syncope ---
General Chief Complaint: Dizziness/Syncope Stated Complaint: DIZZINESS; N/V Source of Information: Patient Exam Limitations: No Limitations (MEGA [employer]IN STUDENT) History of Present Illness Date Seen by Provider: Jan 13, 2021 Initial Comments 25 yo F presents with a cc of dizziness. Pt stated that the dizziness started this morning, it lasts for a few minutes and will subside when she sits down. Pt is not currently having dizziness at this time. Was unable to attend work today. Last time she felt like this, she was . Pt reports nausea and headaches. Current smoker, 1/2 pack per day, last five years. Timing/Prior Episodes: No Prior History Symptoms Prior to Episode: Lightheadedness Precipitating Factors: None Loss of Consciousness: No Loss of Consciousness Current Symptoms: Back to Normal, Nausea (MEGA SPAIN STUDENT) Time Seen by Provider: 16:10 Initial Comments This 25-year-old young lady reports an episode of nausea, dizziness, and shaking while she was getting ready for work at home today. She is uncertain of her status and reports she has felt this way when in the past. She reports prior history of hypoglycemia as well. This is not a common occurre nce for her. 2 weeks ago she was diagnosed with a urinary tract infection and treated. She reports some recurrent nausea since then. Patient was walking at the time of the incident. She denies chest pain or SOA. (KATHYA ABARCA MD) Allergies and Home Medications Allergies Coded Allergies: cyclobenzaprine (Verified Allergy, Unknown, 10/30/19) Patient Home Medication List Home Medication List Reviewed: Yes (KATHYA ABARCA MD) Acetaminophen (Acetaminophen) 500 Mg Tablet, 1,000 MG PO Q6HR Prescribed by: STACEY DALE on 10/31/19627 Docusate Sodium (Dok) 100 Mg Capsule, 100 MG PO BID Prescribed by: STACEY DALE on 10/31/19627 Ibuprofen (Ibuprofen) 800 Mg Tablet, 800 MG PO Q8H Prescribed by: STACEY DALE on 10/31/19627 Lamotrigine (Lamotrigine) 150 Mg Tablet, 150 MG PO BID, (Reported) Entered as Reported by: CHELSEA DEL VALLE on 10/30/19 05 Levetiracetam (Keppra) 500 Mg Tablet, 500 MG PO BID Prescribed by: KERLINE DONG on 11/19/19 1551 Nitrofurantoin Monohyd/M-Cryst (Macrobid 100 mg Capsule) 100 Mg Capsule, 1 TAB PO BID Prescribed by: MIRA REYNOLDS on 11/18/19 1555 Ondansetron (Ondansetron Odt) 4 Mg Tab.rapdis, 4 MG SL Q4H PRN for NAUSEA/VOMITING Prescribed by: KATHYA VILLAGOMEZ on 01/13/21 1706 Oxycodone Hcl (Oxyir Tablet) 5 Mg Tablet, 5 MG PO Q6H PRN for PAIN-SEVERE (8-10) Prescribed by: STACEY DALE on 10/31/19 0628 Review of Systems Constitutional: No chills, No fever, No weakness EENTM: No blurred vision Respiratory: No cough, No short of breath Cardiovascular: No chest pain, No palpitations Gastrointestinal: No abdominal pain, No constipation, No diarrhea; nausea; No vomiting Genitourinary: no symptoms reported Control/STD Prophylaxis: BC Pills Psychiatric/Neurological: Headache, Seizure (MEGA [employer]IN) Constitutional: see HPI Cardiovascular: see HPI Musculoskeletal: no symptoms reported Skin: no symptoms reported Psychiatric/Neurological: Denies Seizure (KATHYA ABARCA MD) Past Prxswwk-Tsumua-Cqxhuo Hx Patient Social History Tobacco Use?: Yes Tobacco type used: Cigarettes Smoking Status: Current Everyday Smoker Smokeless Tobacco Frequency: Never a User Use of E-Cig and/or Vaping dev: No Substance use?: No Alcohol Use?: No (MEGA SPAIN) Seasonal Allergies Seasonal Allergies: Yes (MEGA SPAIN) Past Medical History Surgeries: Yes Adenoidectomy, Gallbladder, Tonsillectomy Respiratory: No Cardiac: No Neurological: Yes Headaches /Migraines, Seizure Disorder Reproductive Disorders: No Genitourinary: No Gastrointestinal: No Musculoskeletal: No Endocrine: No HEENT: No Cancer: No Psychosocial: No Integumentary: No Blood Disorders: No (MEGA SPAIN) Family Medical History Patient reports no known family medical history. Diabetes (MEGA SPAIN) Physical Exam Vital Signs Vital Signs - First Documented 01/13/21 14:19 Temp 36.3 Pulse 96 Resp 15 B/P (MAP) 108/79 (89) Pulse Ox 98 O2 Delivery Room Air (KATHYA ABARCA MD) Vital Signs Capillary Refill : (ME[employer] STUDENT) Height, Weight, BMI Height: 5'9" Weight: 277lbs. oz. 125.631126if; 36.00 BMI Method:Stated General Appearance: No Apparent Distress, WD/WN HEENT: No Scleral Icterus (L), No Scleral Icterus (R) Neck: Non Tender; No Lymphadenopathy (L), No Lymphadenopathy (R) Cardiovascular: Regular Rate, Rhythm, No Edema Respiratory: Chest Non Tender, Lungs Clear, Normal Breath Sounds Gastrointestinal: Normal Bowel Sounds Extremities: Normal Capillary Refill Neurologic/Psychiatric: Alert, Oriented x3, Normal Mood/Affect, entry examiner II-XII Norm as Tested Skin: Normal Color, Warm/Dry Lymphatic: No Adenopathy (ME[employer] MED STUDENT) Progress/Results/Core Measures Results/Orders Lab Results Laboratory Tests Test 01/13/21 14:19 01/13/21 16:19 01/13/21 16:20 Range/Units Urine Color YELLOW Urine Clarity SLT CLOUDLY Urine pH 8.0 5-9 Urine Specific [place] 1.020 1.016-1.022 Urine Protein NEGATIVE NEGATIVE Urine Glucose (UA) NEGATIVE NEGATIVE Urine Ketones NEGATIVE NEGATIVE Urine Nitrite NEGATIVE NEGATIVE Urine Bilirubin NEGATIVE NEGATIVE Urine Urobilinogen 0.2 < = 1.0 MG/DL Urine Leukocyte Esterase 1+ H NEGATIVE Urine RBC (Auto) NEGATIVE NEGATIVE Urine RBC NONE /HPF Urine WBC 2-5 /HPF Urine Squamous Epithelial Cells 10-25 H /HPF Urine Crystals NONE /LPF Urine Bacteria FEW H /HPF Urine Casts NONE /LPF Urine Mucus NEGATIVE /LPF Urine Culture Indicated YES Glucometer 92 70-110 MG/DL White Blood Count 6.3 4.3-11.0 10^3/uL Red Blood Count 4.86 3.80-5.11 10^6/uL Hemoglobin 14.0 11.5-16.0 g/dL Hematocrit 41 35-52 % Mean Corpuscular Volume 84 80-99 fL Mean Corpuscular Hemoglobin 29 25-34 pg Mean Corpuscular Hemoglobin Concent 34 32-36 g/dL Red Cell Distribution Width 11.8 10.0-14.5 % Platelet Count 259 130-400 10^3/uL Mean Platelet Volume 10.4 9.0-12.2 fL Immature Granulocyte % (Auto) 0 % Neutrophils (%) (Auto) 61 42-75 % Lymphocytes (%) (Auto) 28 12-44 % Monocytes (%) (Auto) 8 0-12 % Eosinophils (%) (Auto) 3 0-10 % Basophils (%) (Auto) 0 0-10 % Neutrophils # (Auto) 3.9 1.8-7.8 X 10^3 Lymphocytes # (Auto) 1.8 1.0-4.0 X 10^3 Monocytes # (Auto) 0.5 0.0-1.0 X 10^3 Eosinophils # (Auto) 0.2 0.0-0.3 10^3/uL Basophils # (Auto) 0.0 0.0-0.1 10^3/uL Immature Granulocyte # (Auto) 0.0 0.0-0.1 10^3/uL Sodium Level 137 135-145 MMOL/L Potassium Level 4.0 3.6-5.0 MMOL/L Chloride Level 102 98-107 MMOL/L Carbon Dioxide Level 24 21-32 MMOL/L Anion Gap 11 5-14 MMOL/L Blood Urea Nitrogen 8 7-18 MG/DL Creatinine 0.73 0.60-1.30 MG/DL Estimat Glomerular Filtration Rate 99 BUN/Creatinine Ratio 11 Glucose Level 95 70-105 MG/DL Calcium Level 9.3 8.5-10.1 MG/DL Corrected Calcium 9.4 8.5-10.1 MG/DL Magnesium Level 1.9 1.6-2.4 MG/DL Total Bilirubin 0.4 0.1-1.0 MG/DL Aspartate Amino Transf (AST/SGOT) 14 5-34 U/L Alanine Aminotransferase (ALT/SGPT) 13 0-55 U/L Alkaline Phosphatase 129 40-136 U/L Total Protein 7.0 6.4-8.2 GM/DL Albumin 3.9 3.2-4.5 GM/DL Serum Test, Qualitative NEGATIVE NEGATIVE (KATHYA ABARCA MD) Micro Results Microbiology 01/13/21 Urine Culture - Preliminary, Resulted (KATHYA ABARCA MD) My Orders Orders - KATHYA ABARCA MD Accucheck Stat ONCE (01/13/21 16:10) Ua Culture If Indicated (01/13/21 16:10) Cbc With Automated Diff (01/13/21 16:12) Comprehensive Metabolic Panel (01/13/21 16:12) Hcg,Qualitative Serum (01/13/21 16:12) Magnesium (01/13/21 16:12) Urine Culture (01/13/21 14:19) (KATHYA ABARCA MD) Vital Signs/I&O 01/13/21 01/13/21 14:19 18:48 Temp 36.3 36.3 Pulse 96 96 Resp 15 15 B/P (MAP) 108/79 (89) 108/79 Pulse Ox 98 98 O2 Delivery Room Air Room Air (KATHYA ABARCA MD) Departure Impression Primary Impression: Lightheadedness Additional Impression: Nausea Disposition: 01 HOME, SELF-CARE Condition: Improved Departure-Patient Inst. Decision time for Depature: 17:05 (KATHYA ABARCA MD) Referrals: SARA SAEZ MD (PCP/Family) Primary Care Physician Patient Instructions: Nausea and Vomiting, Adult ED Add. Discharge Instructions: Drink plenty of clear liquids to stay well-hydrated. You may use the Zofran (ondansetron) as prescribed for nausea and vomiting. Follow-up with your primary care provider later this week if you continue to have symptoms. Call with questions or concerns. Return to the ER if you have worsening symptoms. All discharge instructions reviewed with patient and/or family. Voiced under standing. Scripts Ondansetron (Ondansetron Odt) 4 Mg Tab.rapdis 4 MG SL Q4H PRN for NAUSEA/VOMITING, #10 TAB Prov: KATHYA ABARCA MD 01/13/21 Work/School Note: Work Release Form Date Seen in the Emergency Department: Jan 13, 2021 Return to Work: Jan 14, 2021 Restrictions: No Restrictions Medical Student Attestation and Attending Note: I have personally interviewed and examined this patient along with [employer] [place] MS4. I have reviewed student documentation including history, physical, and assessments. I agree with the documentation except where otherwise noted. Exam: General: Alert, oriented, no acute distress, well developed HEENT: Normocephalic and atraumatic Heart: Regular rate and rhythm without murmur Lungs: Clear to auscultation bilaterally with normal effort Neuropsych: Alert, oriented, no focal deficits Skin: Warm and dry without rashes Patient was offered evaluation with labs and urinalysis. She requested we perform these studies. No abnormalities were identified. She was feeling rela tively well during her ER visit except for minor headache. See discharge instructions. (KATHYA ABARCA MD) [employer] MED STUDENT Jan 13, 2021 15:39 KATHYA ABARCA MD Jan 13, 2021 17:07
[2021-01-13 16:30] LABS: COLOR,URINE YELLOW
[2021-01-13 16:31] LABS: BILIRUBIN,URINE NEGATIVE (NEGATIVE); CLARITY,URINE SLT CLOUDLY; GLUCOSE, URINE (UA) NEGATIVE (NEGATIVE); KETONES,URINE NEGATIVE (NEGATIVE); LEUKOCYTE ESTERASE ,URINE 1+ (NEGATIVE); NITRITE,URINE NEGATIVE (NEGATIVE); PROTEIN,URINE NEGATIVE (NEGATIVE)
[2021-01-13 16:34] LABS: BACTERIA,URINE FEW /HPF
[2021-01-13 16:35] LABS: HEMATOCRIT 41 % (35-52); LYMPHOCYTES % (AUTO) 28 % (12-44); MEAN CORPUSCULAR HEMOGLOBIN 29 pg (25-34); MEAN CORPUSCULAR HGB CONC 34 g/dL (32-36); MEAN CORPUSCULAR VOLUME 84 fL (80-99); MEAN PLATELET VOLUME 10.4 fL (9.0-12.2); NEUTROPHILS % (AUTO) 61 % (42-75); PLATELET COUNT 259 10^3/uL (130-400); WHITE BLOOD COUNT 6.3 10^3/uL (4.3-11.0)
[2021-01-13 16:36] LABS: BASOPHILS % (AUTO) 0 % (0-10); EOSINOPHILS # (AUTO) 0.2 10^3/uL (0.0-0.3); EOSINOPHILS % (AUTO) 3 % (0-10); LYMPHOCYTES # (AUTO) 1.8 X 10^3 (1.0-4.0); MONOCYTES # (AUTO) 0.5 X 10^3 (0.0-1.0); MONOCYTES % (AUTO) 8 % (0-12); NEUTROPHILS # (AUTO) 3.9 X 10^3 (1.8-7.8)
[2021-01-13 16:50] LABS: ALBUMIN 3.9 GM/DL (3.2-4.5); BILIRUBIN,TOTAL 0.4 MG/DL (0.1-1.0); CALCIUM 9.3 MG/DL (8.5-10.1); CREATININE SERUM 0.73 MG/DL (0.60-1.30); MAGNESIUM 1.9 MG/DL (1.6-2.4)
[2021-01-13] MEDS ORDERED: ONDA4TAB11 SL (17:06)
[2021-01-13 18:48] VITALS: BP 108/79
== END 2021-01-13 17:18 | disposition home or self-care (01) ==
LOC: EDUNIT# 14:03 → ER FS 14:06
DX: R42 Dizziness and giddiness (principal); R11.0 Nausea; G40.909 Epilepsy, unspecified, not intractable, without status epilepticus; F17.210 Nicotine dependence, cigarettes, uncomplicated; Z79.899 Other long term (current) drug therapy
CPT/HCPCS: 36415; 80053; 81000; 82947; 83735; 84703; 85025; 87088

== ENCOUNTER 2021-02-07 19:10 | Emergency (ER) | payer MEDICAID ==
[~2021-02-07] VITALS: Ht 175.2 cm; Wt 117.6 kg
[~2021-02-07 19:10] MED LIST changes: -DCS100C PO; +DOCU-239 PO; +ONDA4TAB11 SL
[2021-02-07] MEDS ORDERED: NS IV 1000 ML 1,000 ML IV STA (19:32)
[2021-02-07] MEDS ORDERED: KETOROLAC 30 MG/ML VIAL IVP STA (19:32)
[2021-02-07] MEDS ORDERED: ONDANSETRON 4 MG/2 ML (SDV) Z0FRAN IVP STA (19:32)
--- NOTE | 2021-02-07 19:38 | ED Abdominal Pain ---
General Chief Complaint: Abdominal/GI Problems Stated Complaint: LOWER ABD/BACK PAIN,NAUSEA Source of Information: Patient History of Present Illness Date Seen by Provider: Feb 07, 2021 Time Seen by Provider: 19:15 Initial Comments 26-year-old female presenting with complaints of 2 days of right flank and lower quadrant abdominal pain. She has had nausea along with this. She denies any pain or burning with urination. She has had no blood in her urine. Her last menstrual period was a little over 2 weeks ago. She has had some loose stools. She states her pain and symptoms have been worsening in the last 2 days. She continues to have a good appetite and last ate around 5 PM and last drank something just before arriving in the ED at 1900. She has not taken anything for the pain. She was seen at urgent care and they advised her that she could have appendicitis and to come to the ED. After she finished her shift at work she came here to the emergency department since she was still having pain. She has had her gallbladder removed but denies any other abdominal surgeries. She reports having history of ovarian cyst as well but states this feels different. Timing/Duration: 2-3 Days Severity/Quality: Sharp Location: RLQ, Flank Radiation: RLQ, Flank Modifying Factors: Worsens With Movement, Worsens With Palpation Associated Symptoms: Back Pain (chronic and no different than usual); No Chest Pain, No Diaphoresis, No Fever/Chills, No Fatigue, No Headache, No Heartburn; Nausea/Vomiting (nausea but no vomiting); No Shortness of Air, No Swelling/Mass in Abdomen, No Syncope, No Weakness Allergies and Home Medications Allergies Coded Allergies: cyclobenzaprine (Verified Allergy, Unknown, 10/30/19) Patient Home Medication List Home Medication List Reviewed: Yes Acetaminophen (Acetaminophen) 500 Mg Tablet, 1,000 MG PO Q6HR Prescribed by: STACEY DALE on 10/31/19627 Docusate Sodium (Dok) 100 Mg Capsule, 100 MG PO BID Prescribed by: STACEY DALE on 10/31/19627 Ibuprofen (Ibuprofen) 800 Mg Tablet, 800 MG PO Q8H Prescribed by: STACEY DALE on 10/31/19627 Lamotrigine (Lamotrigine) 150 Mg Tablet, 150 MG PO BID, (Reported) Entered as Reported by: CHELSEA DEL VALLE on 10/30/19 0526 Levetiracetam (Keppra) 500 Mg Tablet, 500 MG PO BID Prescribed by: KERLINE DONG on 11/19/19 1551 Nitrofurantoin Monohyd/M-Cryst (Macrobid 100 mg Capsule) 100 Mg Capsule, 1 TAB PO BID Prescribed by: SETH HENRIQUEZ on 02/07/212046 Ondansetron (Ondansetron Odt) 4 Mg Tab.rapdis, 4 MG SL Q4H PRN for NAUSEA/VOMITING Prescribed by: SETH HENRIQUEZ on 02/07/212046 Oxycodone Hcl (Oxyir Tablet) 5 Mg Tablet, 5 MG PO Q6H PRN for PAIN-SEVERE (8-10) Prescribed by: STACEY DLAE on 10/31/19 06 Review of Systems Review of Systems Constitutional: No chills, No fever EENTM: No Symptoms Reported Respiratory: No Symptoms Reported Cardiovascular: No Symptoms Reported Gastrointestinal: See HPI, Diarrhea, Nausea; Denies Poor Appetite, Denies Vomiting Genitourinary: No Symptoms Reported Musculoskeletal: see HPI Skin: No rash Psychiatric/Neurological: Headache (intermittent) Past Wanodcq-Jzrvdl-Zbrbrf Hx Seasonal Allergies Seasonal Allergies: Yes Past Medical History Surgeries: Yes Adenoidectomy, Gallbladder, Tonsillectomy Respiratory: No Cardiac: No Neurological: Yes Headaches /Migraines, Seizure Disorder Reproductive Disorders: No Genitourinary: No Gastrointestinal: No Musculoskeletal: No Endocrine: No HEENT: No Cancer: No Psychosocial: No Integumentary: No Blood Disorders: No Family Medical History Patient reports no known family medical history. Diabetes Physical Exam Vital Signs Vital Signs - First Documented 02/07/21 19:15 Temp 36.0 Pulse 87 Resp 14 B/P (MAP) 130/87 (101) Pulse Ox 100 O2 Delivery Room Air Capillary Refill : Height/Weight/BMI Height: 5'9" Weight: 277lbs. oz. 125.223221vh; 38.00 BMI Method:Stated General Appearance: WD/WN, no apparent distress HEENT: PERRL/EOMI, pharynx normal Neck: non-tender, full range of motion, supple, normal inspection Respiratory: chest non-tender, lungs clear, normal breath sounds Cardiovascular: normal peripheral pulses, regular rate, rhythm Gastrointestinal: normal bowel sounds, soft, no pulsatile mass; No distended, No guarding, No rebound; tenderness (right flank and RLQ) Rectal: deferred Extremities: normal range of motion, non-tender, normal capillary refill Back: no CVA tenderness Neurologic/Psychiatric: alert, oriented x 3 Skin: normal color, warm/dry Progress/Results/Core Measures Results/Orders Lab Results Laboratory Tests Test 02/07/21 19:15 02/07/21 19:35 Range/Units Urine Color YELLOW Urine Clarity CLOUDY Urine pH 6.0 5-9 Urine Specific [place] 1.025 H 1.016-1.022 Urine Protein NEGATIVE NEGATIVE Urine Glucose (UA) NEGATIVE NEGATIVE Urine Ketones NEGATIVE NEGATIVE Urine Nitrite NEGATIVE NEGATIVE Urine Bilirubin NEGATIVE NEGATIVE Urine Urobilinogen 0.2 < = 1.0 MG/DL Urine Leukocyte Esterase 1+ H NEGATIVE Urine RBC (Auto) NEGATIVE NEGATIVE Urine RBC 5-10 H /HPF Urine WBC 50-100 H /HPF Urine Squamous Epithelial Cells >50 H /HPF Urine Crystals NONE /LPF Urine Bacteria MODERATE H /HPF Urine Casts NONE /LPF Urine Mucus LARGE H /LPF Urine Culture Indicated YES White Blood Count 6.1 4.3-11.0 10^3/uL Red Blood Count 4.91 3.80-5.11 10^6/uL Hemoglobin 14.3 11.5-16.0 g/dL Hematocrit 41 35-52 % Mean Corpuscular Volume 84 80-99 fL Mean Corpuscular Hemoglobin 29 25-34 pg Mean Corpuscular Hemoglobin Concent 35 32-36 g/dL Red Cell Distribution Width 12.0 10.0-14.5 % Platelet Count 259 130-400 10^3/uL Mean Platelet Volume 10.1 9.0-12.2 fL Immature Granulocyte % (Auto) 0 % Neutrophils (%) (Auto) 50 42-75 % Lymphocytes (%) (Auto) 37 12-44 % Monocytes (%) (Auto) 9 0-12 % Eosinophils (%) (Auto) 3 0-10 % Basophils (%) (Auto) 0 0-10 % Neutrophils # (Auto) 3.1 1.8-7.8 X 10^3 Lymphocytes # (Auto) 2.3 1.0-4.0 X 10^3 Monocytes # (Auto) 0.5 0.0-1.0 X 10^3 Eosinophils # (Auto) 0.2 0.0-0.3 10^3/uL Basophils # (Auto) 0.0 0.0-0.1 10^3/uL Immature Granulocyte # (Auto) 0.0 0.0-0.1 10^3/uL Sodium Level 138 135-145 MMOL/L Potassium Level 3.5 L 3.6-5.0 MMOL/L Chloride Level 102 98-107 MMOL/L Carbon Dioxide Level 26 21-32 MMOL/L Anion Gap 10 5-14 MMOL/L Blood Urea Nitrogen 8 7-18 MG/DL Creatinine 0.82 0.60-1.30 MG/DL Estimat Glomerular Filtration Rate 86 BUN/Creatinine Ratio 10 Glucose Level 91 70-105 MG/DL Calcium Level 9.2 8.5-10.1 MG/DL Corrected Calcium 9.0 8.5-10.1 MG/DL Total Bilirubin 0.2 0.1-1.0 MG/DL Aspartate Amino Transf (AST/SGOT) 20 5-34 U/L Alanine Aminotransferase (ALT/SGPT) 19 0-55 U/L Alkaline Phosphatase 156 H 40-136 U/L Total Protein 7.3 6.4-8.2 GM/DL Albumin 4.3 3.2-4.5 GM/DL Lipase 31 8-78 U/L Serum Test, Qualitative NEGATIVE NEGATIVE My Orders Orders - SETH HENRIQUEZ MD Comprehensive Metabolic Panel (02/07/21 19:31) Lipase (02/07/21 19:31) Ua Culture If Indicated (02/07/21 19:31) Ed Iv/Invasive Line Start (02/07/21 19:31) Cbc With Automated Diff (02/07/21 19:31) Ct Abdomen/Pelvis W (02/07/21 19:31) Hcg,Qualitative Serum (02/07/21 19:31) Ns Iv 1000 Ml (Sodium Chloride 0.9%) (02/07/21 19:32) Ketorolac Injection (Toradol Injection) (02/07/21 19:32) Ondansetron Injection (Zofran Injectio (02/07/21 19:32) Urine Culture (02/07/21 19:15) Iohexol Injection (Omnipaque 350 Mg/Ml 1 (02/07/21 20:00) Received Contrast (Hold Metformin- Contr (02/07/21 20:00) Ns (Ivpb) (Sodium Chloride 0.9% Ivpb Bag (02/07/21 20:00) Ceftriaxone (Rocephin) (02/07/21 20:47) Medications Given in ED Current Medications Medications Dose Ordered Sig/Rosalba Route Start Time Stop Time Status Last Admin Dose Admin Iohexol 100 ml ONCE ONCE IV 02/07/21 20:00 02/07/21 20:01 DC 02/07/21 20:01 100 ML Sodium Chloride 100 ml ONCE ONCE IV 02/07/21 20:00 02/07/21 20:01 DC 02/07/21 20:01 100 ML Vital Signs/I&O 02/07/21 02/07/21 19:15 21:11 Temp 36.0 36.0 Pulse 87 85 Resp 14 16 B/P (MAP) 130/87 (101) 130/87 Pulse Ox 100 100 O2 Delivery Room Air Room Air Progress Progress Note #1: Progress Note Obtain labs and urinalysis as well as CT scan of the abdomen and pelvis. Give IV fluids for hydration, Zofran for nausea, Toradol for pain. Differential diagnosis would include appendicitis, colitis, diverticulitis, constipation, pyelonephritis, ovarian cyst Progress Note #2: Progress Note Labs stable without acute significant abnormality to explain her symptoms. She did have leukocyte esterase and bacteria, and white blood cells in her urine but also a lot of epithelial cells. Her CT scan was read as no appendicitis or acute abnormality to explain her symptoms. We will try treating for UTI and counseled on follow-up and return precautions. Pt reported her symptoms were improved with treatment and she felt a little better. Diagnostic Imaging Diagonstic Imaging: CT Plain Films/CT/US/NM/MRI: abdomen, pelvis Comments NAME: WILIAN MONCADA [facility] REC#: [id number] PT STATUS: REG ER : 1995 PHYSICIAN: SETH HENRIQUEZ MD ADMIT DATE: 02/07/21/ER FS Draft Date of Exam:02/07/21 CT ABDOMEN/PELVIS W PROCEDURE: CT abdomen and pelvis with contrast. INDICATION: Right lower quadrant pain. TECHNIQUE: Intravenous contrast was administered and abdominopelvic CT performed with multiplanar reconstructions. All CT scans use one or more of the following dose optimizing techniques: automated exposure control, MA and/or KvP adjustment based on patient size and exam type or iterative reconstruction. COMPARISON: None. FINDINGS: The air-containing appendix is well visualized and normal. There is no appendicitis. The uterus is retroflexed but unremarkable. There is no adnexal lesion. There is no small or large bowel obstruction. Liver, bile ducts, spleen, adrenals and pancreas are unremarkable. Gallbladder is surgically absent. The unobstructed kidneys are normal. The aortoiliac and mesenteric vessels are patent and nonaneurysmal. No ascites. No abscess, hematoma or acute fluid collection. There is trace free fluid in the cul-de-sac within normal physiologic limits. IMPRESSION: Normal appendix, unobstructed. Urinary tracts with no acute or suspicious adnexal abnormality. No finding to explain the presenting complaints. Dictated on workstation # [id number] Dict: 02/07/212025 Trans: 02/07/212032 [facility] [id number] Interpreted by: CHAD NIXON Electronically signed by: Reviewed: Reviewed by Me Departure Impression Primary Impression: Right flank pain Additional Impressions: Right lower quadrant abdominal pain Cystitis without hematuria Disposition: HOME, SELF-CARE Condition: Stable Departure-Patient Inst. Decision time for Depature: 20:45 Referrals: SARA SAEZ MD (PCP/Family) Primary Care Physician Patient Instructions: Flank Pain ED, Pelvic Pain ED, Urinary Tract Infection, Adult ED Add. Discharge Instructions: Take full course of antibiotics for UTI. Use anti-inflammatory for pain as needed. Zofran if needed for nausea. Check back with Dr. Saez or return for worsening symptoms. All discharge instructions reviewed with patient and/or family. Voiced understanding. Scripts Ondansetron (Ondansetron Odt) 4 Mg Tab.rapdis 4 MG SL Q4H PRN for NAUSEA/VOMITING, #10 TAB Prov: SETH HENRIQUEZ MD 02/07/21 Nitrofurantoin Monohyd/M-Cryst (Macrobid 100 mg Capsule) 100 Mg Capsule 1 TAB PO BID for 5 Days, #10 CAP Prov: SETH HENRIQUEZ MD 02/07/21 SETH HENRIQUEZ MD Feb 07, 2021 19:38
[2021-02-07 19:39] LABS: BASOPHILS % (AUTO) 0 % (0-10); EOSINOPHILS # (AUTO) 0.2 10^3/uL (0.0-0.3); EOSINOPHILS % (AUTO) 3 % (0-10); HEMATOCRIT 41 % (35-52); HEMOGLOBIN 14.3 g/dL (11.5-16.0); LYMPHOCYTES # (AUTO) 2.3 X 10^3 (1.0-4.0); LYMPHOCYTES % (AUTO) 37 % (12-44); MEAN CORPUSCULAR HEMOGLOBIN 29 pg (25-34); MEAN CORPUSCULAR HGB CONC 35 g/dL (32-36); MEAN CORPUSCULAR VOLUME 84 fL (80-99); MEAN PLATELET VOLUME 10.1 fL (9.0-12.2); MONOCYTES # (AUTO) 0.5 X 10^3 (0.0-1.0); MONOCYTES % (AUTO) 9 % (0-12); NEUTROPHILS # (AUTO) 3.1 X 10^3 (1.8-7.8); NEUTROPHILS % (AUTO) 50 % (42-75); PLATELET COUNT 259 10^3/uL (130-400); WHITE BLOOD COUNT 6.1 10^3/uL (4.3-11.0)
[2021-02-07 19:44] LABS: COLOR,URINE YELLOW
[2021-02-07 19:45] LABS: BACTERIA,URINE MODERATE /HPF; BILIRUBIN,URINE NEGATIVE (NEGATIVE); CLARITY,URINE CLOUDY; GLUCOSE, URINE (UA) NEGATIVE (NEGATIVE); KETONES,URINE NEGATIVE (NEGATIVE); LEUKOCYTE ESTERASE ,URINE 1+ (NEGATIVE); NITRITE,URINE NEGATIVE (NEGATIVE); PROTEIN,URINE NEGATIVE (NEGATIVE); SQUAMOUS EPITHELIAL CELL,UR >50 /HPF; WBC,URINE 50-100 /HPF
[2021-02-07 19:58] LABS: ALBUMIN 4.3 GM/DL (3.2-4.5); BILIRUBIN,TOTAL 0.2 MG/DL (0.1-1.0); CALCIUM 9.2 MG/DL (8.5-10.1); CREATININE SERUM 0.82 MG/DL (0.60-1.30); POTASSIUM 3.5 MMOL/L (3.6-5.0); TOTAL PROTEIN 7.3 GM/DL (6.4-8.2)
[2021-02-07] MEDS ORDERED: HOLD METFORMIN - RECEIVED CONTRAST 20 ML VIAL IV SCH (20:00)
[2021-02-07] MEDS ORDERED: IOHEXOL 350 MG/ML 100 ML (OMNIPAQUE 350) VIAL IV ONE (20:00)
[2021-02-07] MEDS ORDERED: NS 100 ML (IVPB) BAG IV ONE (20:00)
--- NOTE | 2021-02-07 20:35 | Diagnostic Imaging Report ---
PROCEDURE: CT abdomen and pelvis with contrast. INDICATION: Right lower quadrant pain. TECHNIQUE: Intravenous contrast was administered and abdominopelvic CT performed with multiplanar reconstructions. All CT scans use one or more of the following dose optimizing techniques: automated exposure control, MA and/or KvP adjustment based on patient size and exam type or iterative reconstruction. COMPARISON: None. FINDINGS: The air-containing appendix is well visualized and normal. There is no appendicitis. The uterus is retroflexed but unremarkable. There is no adnexal lesion. There is no small or large bowel obstruction. Liver, bile ducts, spleen, adrenals and pancreas are unremarkable. Gallbladder is surgically absent. The unobstructed kidneys are normal. The aortoiliac and mesenteric vessels are patent and nonaneurysmal. No ascites. No abscess, hematoma or acute fluid collection. There is trace free fluid in the cul-de-sac within normal physiologic limits. IMPRESSION: Normal appendix, unobstructed. Urinary tracts with no acute or suspicious adnexal abnormality. No finding to explain the presenting complaints. Dictated by: Dictated on workstation # [id number]
[2021-02-07] MEDS ORDERED: NITR-65 PO (20:47)
[2021-02-07] MEDS ORDERED: ONDA4TAB11 SL (20:47)
[2021-02-07] MEDS ORDERED: cefTRIAXone 1,000 MG in WATER (STERILE) FOR INJECTION 10 ML IV STA (20:47)
[2021-02-07 21:11] VITALS: BP 130/87
== END 2021-02-07 21:12 | disposition home or self-care (01) ==
LOC: EDUNIT# 19:10 → ER FS 19:11
DX: N30.90 Cystitis, unspecified without hematuria (principal); G40.909 Epilepsy, unspecified, not intractable, without status epilepticus; Z79.899 Other long term (current) drug therapy
CPT/HCPCS: 36415; 74177; 80053; 81000; 83690; 84703; 85025; 87088

== ENCOUNTER 2021-05-23 13:16 | Emergency (ER) | payer MEDICAID ==
[~2021-05-23] VITALS: Ht 175.3 cm; Wt 108.0 kg
[~2021-05-23 13:16] MED LIST changes: +MONT-40 PO; -MONT10TA32 PO
[2021-05-23 13:20] VITALS: BP 131/89
--- NOTE | 2021-05-23 13:39 | ED GU-Female ---
General Chief Complaint: - Reproductive Stated Complaint: VAGINAL BLEEDING Source: patient, old records History of Present Illness Date Seen by Provider: May 23, 2021 Time Seen by Provider: 13:18 Initial Comments 26-year-old female presenting with complaints of irregular vaginal bleeding over the last month and pelvic pain that started today. She denies any pain with urination. She has had no fever or chills. She denies nausea or vomiting. She had seen Dr. Yi in April and was started on a control pill to help try and regulate her menses since she was having irregular bleeding. Her last m enstrual period before her current episode of bleeding was May 05. She states that at that time she was not having the severe pelvic pain like today. She was concerned that she was having a miscarriage and she wanted confirmation of whether that was happening or not. She had tried going to urgent care and they told her that they would need her to go to the emergency department to have blood work done. She has had no urine test at home because she states that she knows from prior experience that she has to be at least 6 weeks long before the urine was still positive. She feels like she needs a blood test to be able to see if she was or not. She has not been keeping track of how much bleeding she is having or how many pads she was using. She is [id number] per the patient report. Severity/Quality: moderate Location: vaginal Activities at Onset: none Prior Genitourinary Problems: similar symptoms (feels like when she had miscarriage in 2018) Sexual [place] History: greater than 2 months ago Associated Symptoms: No abdominal pain, No diaphoresis, No dysuria, No fever/chills, No loss of bladder control; lower back pain (chronic from bulging disc); No lumps, No mass, No nausea/vomiting, No nocturia, No polyuria, No swelling, No syncope, No urinary frequency Allergies and Home Medications Allergies Coded Allergies: cyclobenzaprine (Verified Allergy, Unknown, 10/30/19) Patient Home Medication List Home Medication List Reviewed: Yes Acetaminophen (Acetaminophen) 500 Mg Tablet, 1,000 MG PO Q6HR Prescribed by: STACEY YI on 10/31/19627 Docusate Sodium (Dok) 100 Mg Capsule, 100 MG PO BID Prescribed by: STACEY YI on 10/31/19627 Ibuprofen (Ibuprofen) 800 Mg Tablet, 800 MG PO Q8H Prescribed by: STACEY YI on 10/31/19627 Lamotrigine (Lamotrigine) 150 Mg Tablet, 150 MG PO BID, (Reported) Entered as Reported by: CHELSEA DEL VALLE on 10/30/19 05 Levetiracetam (Keppra) 500 Mg Tablet, 500 MG PO BID Prescribed by: KERLINE DONG on 11/19/19 155 Nitrofurantoin Monohyd/M-Cryst (Macrobid 100 mg Capsule) 100 Mg Capsule, 1 TAB PO BID Prescribed by: SETH HENRIQUEZ on 02/07/212046 Ondansetron (Ondansetron Odt) 4 Mg Tab.rapdis, 4 MG SL Q4H PRN for NAUSEA/VOMITING Prescribed by: SETH HENRIQUEZ on 02/07/212046 Oxycodone Hcl (Oxyir Tablet) 5 Mg Tablet, 5 MG PO Q6H PRN for PAIN-SEVERE (8-10) Prescribed by: STACEY YI on 10/31/19627 Review of Systems Review of Systems Constitutional: No chills, No dizziness, No fever EENTM: nose congestion ("from my allergies") Respiratory: no symptoms reported Cardiovascular: no symptoms reported Gastrointestinal: no symptoms reported Genitourinary: see HPI Musculoskeletal: back pain (chronic low back pain from bulging disc) Skin: No rash Psychiatric/Neurological: Anxiety; Denies Headache Past [place]-Fzqnbg-Jpljdf Hx Patient Social History Tobacco Use?: No Tobacco type used: Cigarettes Smoking Status: Current Everyday Smoker Substance use?: No Alcohol Use?: No Pt feels they are or have been: No Seasonal Allergies Seasonal Allergies: Yes Past Medical History Surgeries: Yes Adenoidectomy, Gallbladder, Tonsillectomy Respiratory: No Cardiac: No Neurological: Yes Headaches /Migraines, Seizure Disorder Reproductive Disorders: No Genitourinary: No Gastrointestinal: No Musculoskeletal: No Endocrine: No HEENT: No Cancer: No Psychosocial: No Integumentary: No Blood Disorders: No Family Medical History Patient reports no known family medical history. Diabetes Physical Exam Vital Signs Vital Signs - First Documented 05/23/21 13:20 Temp 36.6 Pulse 102 Resp 16 B/P (MAP) 131/89 (103) Pulse Ox 95 O2 Delivery Room Air Capillary Refill : Height, Weight, BMI Height: 5'9" Weight: 277lbs. oz. 125.566498ts; 38.00 BMI Method:Stated General Appearance: WD/WN, no apparent distress HEENT: PERRL/EOMI Cardiovascular: normal peripheral pulses, regular rate, rhythm Respiratory: chest non-tender, lungs clear, normal breath sounds, no respirat ory distress, no accessory muscle use Gastrointestinal: normal bowel sounds, non tender, soft, no pulsatile mass Pelvic: other (deferred pelvic exam with her bleeding and she did not want me to perform exam. states "I just want a blood test to know if I am having a miscarriage or not") Extremities: normal range of motion, non-tender, normal capillary refill Neurologic/Psychiatric: alert, oriented x 3 Skin: normal color, warm/dry Progress/Results/Core Measures Suspected Sepsis SIRS Temperature: Pulse: Respiratory Rate: Laboratory Tests 05/23/21 13:35: White Blood Count 3.0L Blood Pressure / Mean: Laboratory Tests 05/23/21 13:35: Platelet Count 202 Results/Orders Lab Results Laboratory Tests Test 05/23/21 13:20 05/23/21 13:35 Range/Units Urine Color YELLOW Urine Clarity TURBID Urine pH 7.0 5-9 Urine Specific [place] 1.025 H 1.016-1.022 Urine Protein NEGATIVE NEGATIVE Urine Glucose (UA) NEGATIVE NEGATIVE Urine Ketones NEGATIVE NEGATIVE Urine Nitrite NEGATIVE NEGATIVE Urine Bilirubin NEGATIVE NEGATIVE Urine Urobilinogen 0.2 < = 1.0 MG/DL Urine Leukocyte Esterase NEGATIVE NEGATIVE Urine RBC (Auto) 3+ H NEGATIVE Urine RBC 10-25 H /HPF Urine WBC NONE /HPF Urine Squamous Epithelial Cells 0-2 /HPF Urine Crystals PRESENT H /LPF Urine Amorphous Sediment LARGE VITALY PHOSPHATE H /LPF Urine Bacteria NEGATIVE /HPF Urine Casts NONE /LPF Urine Mucus LARGE H /LPF Urine Culture Indicated NO White Blood Count 3.0 L 4.3-11.0 10^3/uL Red Blood Count 5.01 3.80-5.11 10^6/uL Hemoglobin 14.0 11.5-16.0 g/dL Hematocrit 42 35-52 % Mean Corpuscular Volume 85 80-99 fL Mean Corpuscular Hemoglobin 28 25-34 pg Mean Corpuscular Hemoglobin Concent 33 32-36 g/dL Red Cell Distribution Width 12.2 10.0-14.5 % Platelet Count 202 130-400 10^3/uL Mean Platelet Volume 10.7 9.0-12.2 fL Immature Granulocyte % (Auto) 0 % Neutrophils (%) (Auto) 40 L 42-75 % Lymphocytes (%) (Auto) 45 H 12-44 % Monocytes (%) (Auto) 13 H 0-12 % Eosinophils (%) (Auto) 1 0-10 % Basophils (%) (Auto) 0 0-10 % Neutrophils # (Auto) 1.2 L 1.8-7.8 X 10^3 Lymphocytes # (Auto) 1.4 1.0-4.0 X 10^3 Monocytes # (Auto) 0.4 0.0-1.0 X 10^3 Eosinophils # (Auto) 0.0 0.0-0.3 10^3/uL Basophils # (Auto) 0.0 0.0-0.1 10^3/uL Immature Granulocyte # (Auto) 0.0 0.0-0.1 10^3/uL Human Chorionic Gonadotropin, Quant < 5 <5 MIU/ML My Orders Orders - SETH HENRIQUEZ MD Ua Culture If Indicated (05/23/21 13:23) Urine Bedside (05/23/21 13:23) Hcg,Quantitative (05/23/21 13:33) Cbc With Automated Diff (05/23/21 13:33) Vital Signs/I&O 05/23/21 13:20 Temp 36.6 Pulse 102 Resp 16 B/P (MAP) 131/89 (103) Pulse Ox 95 O2 Delivery Room Air Capillary Refill : Progress Note #1: Progress Note Urine test was negative here in the ED. Although it is unlikely that the patient is especially with her taking control pills since April for irregular bleeding will send a quantitative hCG. Progress Note #2: Progress Note Seren quantitative hCG is less than 5. CBC is stable. Advised patient of the findings and that she was not having a miscarriage. Counseled to follow-up with the clinic for continued irregular periods and pelvic pain. Departure Impression Primary Impression: Irregular periods/menstrual cycles Additional Impression: Pelvic pain in female Disposition: 01 HOME, SELF-CARE Condition: Stable Departure-Patient Inst. Decision time for Depature: 14:19 Referrals: SARA SAEZ MD (PCP/Family) Primary Care Physician STACEY YI DO Patient Instructions: Pelvic Pain ED, Bleeding Between Periods Add. Discharge Instructions: Follow up with Dr. Yi about your irregular bleeding and pelvic pain. Your test today did not show with blood or urine. Try drinking more water and staying well hydrated. You could use Ibuprofen or Naproxen to help with pain, and Acetaminophen in addition to that if needed. All discharge instructions reviewed with patient and/or family. Voiced understanding. SETH HENRIQUEZ MD May 23, 2021 13:39
[2021-05-23 13:45] LABS: BILIRUBIN,URINE NEGATIVE (NEGATIVE); CLARITY,URINE TURBID; COLOR,URINE YELLOW; GLUCOSE, URINE (UA) NEGATIVE (NEGATIVE); KETONES,URINE NEGATIVE (NEGATIVE); LEUKOCYTE ESTERASE ,URINE NEGATIVE (NEGATIVE); NITRITE,URINE NEGATIVE (NEGATIVE); PROTEIN,URINE NEGATIVE (NEGATIVE)
[2021-05-23 14:09] LABS: AMORPHOUS SEDIMENT,UR LARGE AMOR PHOSPHATE /LPF; BACTERIA,URINE NEGATIVE /HPF; SQUAMOUS EPITHELIAL CELL,UR 0-2 /HPF
[2021-05-23 14:13] LABS: BASOPHILS % (AUTO) 0 % (0-10); EOSINOPHILS % (AUTO) 1 % (0-10); HEMATOCRIT 42 % (35-52); LYMPHOCYTES % (AUTO) 45 % (12-44); MEAN CORPUSCULAR HEMOGLOBIN 28 pg (25-34); MEAN CORPUSCULAR HGB CONC 33 g/dL (32-36); MEAN CORPUSCULAR VOLUME 85 fL (80-99); MEAN PLATELET VOLUME 10.7 fL (9.0-12.2); MONOCYTES % (AUTO) 13 % (0-12); NEUTROPHILS % (AUTO) 40 % (42-75); PLATELET COUNT 202 10^3/uL (130-400)
[2021-05-23 14:14] LABS: LYMPHOCYTES # (AUTO) 1.4 X 10^3 (1.0-4.0); MONOCYTES # (AUTO) 0.4 X 10^3 (0.0-1.0); NEUTROPHILS # (AUTO) 1.2 X 10^3 (1.8-7.8)
== END 2021-05-23 14:27 | disposition home or self-care (01) ==
LOC: EDUNIT# 13:16 → ER FS 13:18
DX: N92.6 Irregular menstruation, unspecified (principal); R10.2 Pelvic and perineal pain; G40.909 Epilepsy, unspecified, not intractable, without status epilepticus; F17.210 Nicotine dependence, cigarettes, uncomplicated; Z32.02 Encounter for pregnancy test, result negative; Z79.899 Other long term (current) drug therapy
CPT/HCPCS: 36415; 81000; 84702; 84703; 85025